=== PATIENT | male | born 1960 | race Caucasian/White ===

== ENCOUNTER 2019-01-22 23:30 | Emergency (ER) | payer OTHER ==
[2019-01-23] MEDS ORDERED: Cefepime 2 GM VIAL ONE (01:56)
[2019-01-23] MEDS ORDERED: diphenhydrAMINE 50 MG/ML VIAL ONE ×4 (02:23→03:04)
[2019-01-23] MEDS ORDERED: Iopamidol 370 76% 100 ML VIAL ONE (11:36)
--- NOTE | 2019-01-23 11:39 | ULT ---
PRELIMINARY REPORT/[facility]/EMERGENCY AFTER HOURS PROCEDURE CLINICAL HISTORY: Lt knee pain/edema, bruising from lt knee to lower calf x 4 days TECHNIQUE: Real-time ultrasound scan of the veins of the left lower extremity with color Doppler flow, spectral waveform analysis and compression. COMPARISON: None provided. FINDINGS: DEEP VEINS: The common femoral, femoral, and popliteal veins are echolucent and compressible. These vessels demonstrate respiratory variation and augmentation. There is normal color Doppler flow throughout. The visualized calf veins are also patent. SUPERFICIAL VEINS: The visualized greater saphenous vein is patent. SOFT TISSUES: No popliteal fossa cyst. Soft tissue edema is noted in the region of clinical concern . IMPRESSION: No deep venous thrombosis in the left lower extremity. ELECTRONICALLY SIGNED BY: Asad Shah MD Jan 23, 2019 12:35:11 AM AIRCRAFT INSTRUMENT TESTER This report is intended for review by the ordering physician only, in accordance of law. If you recei ve this report in error, please call [facility] at [phone]. FINAL REPORT: I agree with the preliminary report provided. No evidence of DVT in the left lower extremity. Transcribed Date/Time: 01/23/2019 2:01 PM
--- NOTE | 2019-01-23 11:39 | CT ---
PRELIMINARY REPORT/[facility]/EMERGENCY AFTER HOURS PROCEDURE EXAM: CTA Abdomen and Pelvis With Runoff to the Lower Extremities with Intravenous Contrast. CLINICAL HISTORY: ER 7... M58 presents to the ED via EMS txfer from another facility for elevated D-Dimer. Pt reports dereck damon believes he has a blood clot in his left leg and noticed swelling this past Monday. After having his leg raised, pt reports his swelling decreased but states his leg then "turned black". Pt s tates he is on ASA and Plavix. TECHNIQUE: Axial CTA images of the abdomen, pelvis and lower extremities with intravenous contrast. Three-dimens ional MIP/volume rendered formations were performed. CONTRAST: With; Isovue 370, 95ml COMPARISON: None provided. FINDINGS: VASCULATURE: Atherosclerosis. No aneurysm, dissection, or significant stenosis. 3 vessel flow to the feet bilaterally. Lower thorax: No basilar airspace consolidation. ABDOMEN: Liver: Steatosis. No mass. Gallbladder and bile ducts: No calcified stone. No ductal dilation. Pancreas: Unremarkable. No ductal dilation. Spleen: Unremarkable. Adrenals: No mass. Kidneys and ureters: The kidneys enhance symmetrically. No hydronephrosis. No solid mass. Bilateral renal cortical cysts. Stomach and bowel: No obstruction. No bowel wall thickening. No CT evidence of acute diverticulitis. Abdominal wall and soft tissues: Unremarkable. Appendix: The appendix is within normal limits. PELVIS: Bladder: Unremarkable. Reproductive: Unremarkable as visualized. Peritoneum: No free fluid. No free air. Lymph nodes: No lymphadenopathy. Bones: No acute osseous abnormality. LOWER EXTREMITIES: Soft tissues: Left lower extremity mild soft tissue edema. Lymph nodes: No lymphadenopathy. Bones: No acute osseous abnormality. Moderate left knee hemarthrosis. Remote left ACL repair surgery. Mild right hip osteoarthritis. Degenerative disc disease with foraminal narrowing and spinal stenosis at the lower lumbar levels. IMPRESSION: No occlusion or hemodynamically significant stenosis of the arterial system of the abdomen, pelvis, o r bilateral lower extremities. No AAA. No aortic dissection. ELECTRONICALLY SIGNED BY: Archie Allan MD Jan 23, 2019 2:35:38 AM ASSISTANT PROGRAM DIRECTOR FINAL REPORT: CT ARTERIOGRAM ABDOMEN AND PELVIS WITH IV CONTRAST AND 3D IMAGING CT ARTERIOGRAM RUNOFF BILATERAL LOWER EXTREMITIES WITH IV CONTRAST AND 3D IMAGING: DATE: 01/23/2019. PERFORMED ON AN EMERGENCY BASIS: 0137 hours. HISTORY: Vascular disease. Leg pain. Claudication. FINDINGS: Agree with the preliminary report by Dr. Allan from [facility]. Mild atherosclerosis. No signi ficant stenosis evident. Three-vessel runoff to each lower leg. Small hiatal hernia. Renal cysts. Degenerative changes throughout the lumbar spine. Fibrotic changes at the lung bases apparent. Transcribed Date/Time: 01/23/2019 2:08 PM
== END 2019-01-23 03:48 | disposition short-term general hospital (02) ==
LOC: ERS 23:30 → EEVIPCON 23:30 → ERS 01-23 03:48
DX: L03.116 Cellulitis of left lower limb (principal); I10 Essential (primary) hypertension; J44.9 Chronic obstructive pulmonary disease, unspecified; F25.9 Schizoaffective disorder, unspecified; Z79.82 Long term (current) use of aspirin; Z79.899 Other long term (current) drug therapy
CPT/HCPCS: 75635; 96365; 96367; 96375; J0692; J1200; J3370; Q9967

== ENCOUNTER 2019-07-29 01:12 | Inpatient (IN) | payer OTHER ==
[2019-07-29 02:18] LABS: #Lymphocytes 1.1 thou/uL (1.20-3.40); #Monocytes 0.9 thou/uL (0.11-0.59); #Neutrophils 9.5 thou/uL (1.40-6.50); %Basophils 0.2 % (0.0-1.0); %Eosinophils 0.2 % (0.0-10.0); %Lymphocytes 9.6 % (21.0-51.0); %Monocytes 7.6 % (0.0-10.0); %Neutrophils 82.5 % (42.0-75.0); Hemoglobin 15.4 g/dL (14.0-18.0); Mean Corpuscular HGB CONC 34.2 g/dL (32.0-36.0); Mean Corpuscular Hemoglobin 32.1 pg (27.0-31.0); Mean Corpuscular Volume 93.9 fL (78.0-98.0); Mean Platelet Volume 8.8 fL (7.4-10.4); Platelet Count 195 thou/uL (130-400); RBC Distribution Width 12.6 % (11.5-14.5); White Blood Cell (WBC) Count 11.6 thou/uL (4.8-10.8)
[2019-07-29 02:25] LABS: CO2 Tension 27.1 mmHg (35.0-45.0); O2 Tension (PaO2), arterial 46.1 mmHg (80.0-100.0); pH, Arterial 7.52 (7.35-7.45)
[2019-07-29 02:26] LABS: Actual Bicarbonate (HCO3a) 21.4 mEq/L (22-28); Base Excess (BEa) 0.1 mEq/L (-2.0 to +3.0); Carboxyhemoglobin (COHb) 1.2 gm% (0.0-3.0); Hemoglobin (Hb) 15.8 g/dL (14.0-18.0)
[2019-07-29 02:27] LABS: Analyzer IN Cardio ER; Calcium, Ionized (arterial) 1.01 mmol/L (1.12-1.30); Potassium - ABG Lab 3.31 mmol/L (3.70-5.30); Puncture Site RRA
[2019-07-29 02:28] LABS: ALV-art Gradient 429.625 (0-20)
[2019-07-29 02:40] LABS: ALT (SGPT) 29 U/L (8-55); AST (SGOT) 47 U/L (5-34); Albumin 3.5 g/dL (3.5-5.0); Alkaline Phosphatase 38 U/L (40-110); Anion Gap 18 mmol/L (10-20); BUN (Urea Nitrogen) 35 mg/dL (8.4-25.7); Bilirubin, Total 1.2 mg/dL (0.2-1.2); Calc. Creatinine Clearance 0 mL/min (70-130); Calcium 7.7 mg/dL (7.8-10.44); Carbon Dioxide 23 mmol/L (22-29); Chloride 95 mmol/L (98-107); Estimated GFR-MDRD 59; Globulin 3.4 g/dL (2.4-3.5); Glucose 113 mg/dL (70-105); Potassium 3.3 mmol/L (3.5-5.1); Protein, Total 6.9 g/dL (6.0-8.3); Sodium 133 mmol/L (136-145)
[2019-07-29] MEDS ORDERED: Aspirin 300 MG Suppository ONE (02:57)
[2019-07-29] MEDS ORDERED: Enoxaparin Sodium 80 MG/0.8 ML SYRINGE ONE (03:47)
[2019-07-29] MEDS ORDERED: Nitroglycerin 0.4 MG TAB (25 Tab Bottle) SL PRN (03:54)
[2019-07-29] MEDS ORDERED: Acetaminophen 325 MG TAB PO PRN (04:04)
--- NOTE | 2019-07-29 04:22 | PDOC.EVN ---
Event Note - Event Note Event Note: H&P dictated [id number]
[2019-07-29 05:18] LABS: Lactic Acid 2.4 mmol/L (0.5-2.2)
--- NOTE | 2019-07-29 05:22 | HP ---
CHIEF COMPLAINT: Shortness of breath. HISTORY OF PRESENT ILLNESS: Mr. Morales is a 59-year-old male who presents to the emergency room from [facility] with complaint of shortness of breath. Upon arrival to the emergency room, the patient was tachypneic and diaphoretic and in respiratory distress. Chills just started yesterday. The patient has also been having fever. The patient has a history of pulmonary bulla, rheumatoid arthritis, COPD, osteoarthritis, myocardial infarction x2. Initially, the patient was placed on high-flow nasal cannula, but the patient kept removing it. The oxygen saturation was in the low 80s. The patient then was placed on BiPAP, oxygen saturation currently is in the high 90s. CT of the chest was done, but without IV contrast because of poor IV access. It showed large bulla on right lung. The patient also was found to have elevated troponin of 0.63. The patient was placed on BiPAP with improvement in his respiratory status with decreased work of breathing. The patient had a troponin of 6.638. The patient was given aspirin and one dose of Lovenox. The patient is being admitted to [facility] for further management. PAST MEDICAL HISTORY: 1. Myocardial infarction x2. 2. COPD/pulmonary bulla. 3. Rheumatoid arthritis. 4. Osteoarthritis. 5. Schizoaffective disorder. SOCIAL HISTORY: Denies smoking, alcohol drinking, or drug abuse. FAMILY HISTORY: Reviewed and noncontributory. ALLERGIES: TO CODEINE AND PENICILLAMINE. CURRENT MEDICATIONS: Please see home medication reconciliation form for updated medications. REVIEW OF SYSTEMS: Review of 14 systems negative except what is mentioned in History of Present Illness. PHYSICAL EXAMINATION: GENERAL: The patient is awake, alert, in moderate respiratory distress, on BiPAP. HEAD AND NECK: Normocephalic, atraumatic. Neck is supple. CHEST: Decreased air entry, right lung. HEART: S1, S2. Regular. ABDOMEN: Soft, nontender. Bowel sounds present. NEUROLOGIC: Awake, alert, moving extremities. PSYCH: Unable to assess. EXTREMITIES: No clubbing or cyanosis. LABORATORY DATA: Sodium 133, potassium 3.3, glucose 113, BUN is 35, creatinine 1.2. Troponin is 0.66. BNP is 164. Lactic acid is 2.2. WBC count is 11.6, hemoglobin 15.4, platelets 195. ABG done on nasal cannula, pH 7.52, pCO2 of 27, pO2 of 46. CT of the chest as mentioned above in History of Present Illness. ASSESSMENT: 1. Acute hypoxic respiratory failure. 2. Pneumonia? Suspected COVID-19, COVID swab done in the emergency room. 3. Elevated troponin/acute coronary syndrome cannot be ruled out. 4. Pulmonary embolism cannot be entirely ruled out. CT was done, unfortunately without contrast since his IV infiltrated. 5. History of myocardial infarction. 6. Bullous lung disease. 7. Rheumatoid arthritis. PLAN: 1. Admit to IMCU. 2. Oxygen to keep saturation more than 92%. 3. Septic workup done in the ED. 4. Continue empirically with IV antibiotics for ?pneumonia. 5. COVID swab done in the ED. 6. Isolation precautions. 7. The patient was given one dose of Lovenox 1 mg/kg, we will continue IV anticoagulation, the patient may need CTA of the chest after establishing an IV access if pulmonary embolism need to be ruled out. 8. Consult Cardiology for evaluation and further recommendations, history of myocardial infarction, the patient is having elevated troponin. 9. Consult Pulmonary in a.m. for evaluation and further recommendations. 10. Serial troponins. 11. Reconcile home medications. 12. DVT prophylaxis appropriate. 13. GI prophylaxis. 14. Expected length of stay, 2 midnights or more. Job ID: [id number] MTDD
[2019-07-29 05:32] VITALS: BMI 27.1
[2019-07-29 05:38] LABS: Critical Call Chem Troponin I RESULT DECREASING
[2019-07-29] MEDS: Azithromycin 500 MG in Sodium Chloride 0.9% 250 ML 250 ML IVPB SCH (05:45)
[2019-07-29] MEDS: cefTRIAXone\\ROCEPHIN 1 GM in Sodium Chloride 0.9% 100 ML IVPB SCH (06:16)
[2019-07-29 09:25] LABS: CKMB 6.6 ng/mL (0-6.6)
[2019-07-29] MEDS: Enoxaparin Sodium 80 MG/0.8 ML SYRINGE SC SCH ×3 (09:31→21:56)
[2019-07-29] MEDS: Famotidine/PF 20 mg/2ml Vial SLOW IVP SCH ×2 (09:31→20:49)
[2019-07-29] MEDS: Aspirin 325 mg Enteric Coated Tablet PO SCH (09:31)
--- NOTE | 2019-07-29 09:37 | CON ---
DATE OF CONSULTATION: REASON FOR CONSULTATION: Elevated troponin. PRIMARY OPERATIONS ASSISTANT: None. HISTORY OF PRESENT ILLNESS: Mr. Morales is a 59-year-old gentleman, who recently presented with increased shortness of breath. He is from the [facility] with high incidence of COVID. COVID is currently pending. He denies chest pain, pressure, or other associated symptoms. He does have a previous history of underlying coronary artery disease. He states he had several stents placed in [place] in 2017. PAST MEDICAL HISTORY: 1. CAD, status post TX. 2. Status post stent. 3. COPD. 4. Rheumatoid arthritis. 5. Schizoaffective disorder. SOCIAL HISTORY: No current tobacco or alcohol use. He is currently incarcerated. FAMILY HISTORY: Noncontributory. ALLERGIES: CODEINE. REVIEW OF SYSTEMS: A 10-point review of systems is reviewed as above, otherwise negative. PHYSICAL EXAMINATION: GENERAL: He does appear older than stated age. VITAL SIGNS: Blood pressure 124/79, pulse 83, respirations 20. NEUROLOGIC: The patient is alert and oriented x3 with no focal neurologic deficits. HEENT: Sclerae without icterus. Mouth has moist mucous membranes with normal pallor. NECK: No JVD. Carotid upstroke brisk. No bruits bilaterally. LUNGS: Clear to auscultation with unlabored respirations. BACK: No scoliosis or kyphosis. CARDIAC: Regular rate and rhythm with normal S1 and S2. No S3 or S4 noted. No significant rubs, murmurs, thrills, or gallops noted throughout the precordium. PMI is not displaced. There is no parasternal heave. ABDOMEN: Soft, nontender, nondistended. No peritoneal signs present. No hepatosplenomegaly. No abnormal striae. EXTREMITIES: 2+ femoral and 2+ dorsalis pedis pulses. No cyanosis, clubbing, or edema. SKIN: No gross abnormalities. PERTINENT LABORATORY DATA: Creatinine 1.26. Peak troponin 0.638. Chest x-ray pending. IMPRESSION: 1. Elevated troponin. 2. ? COVID pneumonia. 3. Coronary artery disease. 4. Status post stent. 5. Previous myocardial infarction. RECOMMENDATIONS: At this point, we would recommend continued conservative therapy. He is not on pressor agents. His elevated troponin is secondary to type 2 TX from likely infection. He has had fever up to 101. At this point, we will continue conservative therapy. He is currently on BiPAP with no chest pain/pressure noted. We would recommend continued close observation. Continue Zithromax, in addition to Rocephin. We would continue Lovenox subcu q.12 x24 hours only, then decrease to DVT prophylaxis. I did spend 40 minutes of critical care time at Mr. Morales's bedside, both reviewing his case, visiting with the patient and reviewing records. Job ID: [id number]
--- NOTE | 2019-07-29 11:02 | CT ---
PRELIMINARY REPORT/[facility]/EMERGENCY AFTER HOURS PROCEDURE EXAM: CT Chest Without Intravenous Contrast. CLINICAL HISTORY: HX OF COPD FEELING SOB SINCE YESTERDAY TECHNIQUE: Axial computed tomography images of the chest without intravenous contrast. COMPARISON: CT - CTA ANGIO AORT BILAT RNMIKE W - 01/23/2019 01:33 AM CERTIFIED MEDICAL TECHNICIAN FINDINGS: LUNGS: 16.9 x 10.3 x 15.5 cm bulla involving the majority of the right upper lobe. Mild compression a nd inferior displacement of the right hilum which may be due to this large bullae. Additional small b lebs in the right medial lung. Reticular thickening, bronchiectasis and increased lucency seen in the right lower lobe and left upper lobe which is compatible with chronic interstitial lung disease and emphysema. PLEURAL SPACES: No pleural effusion. No pneumothorax. HEART AND MEDIASTINUM: Coronary artery calcifications are present. The heart is normal in size. There is a trace pericardial effusion. LYMPH NODES: No lymphadenopathy. CHEST WALL AND UPPER ABDOMEN: The upper abdominal solid organs are unremarkable. The chest wall is un remarkable. BONES: No acute osseous abnormality. IMPRESSION: Chronic interstitial lung disease with a 16.9 cm bulla involving the majority of the righ t upper lobe and causing mild inferior displacement of the right hilum and adjacent lung parenchyma. No focal pulmonary consolidation. ELECTRONICALLY SIGNED BY: Tanika Stanley MD Jul 29, 2019 3:37:47 AM CDT FINAL REPORT CT CHEST WITHOUT CONTRAST: Severe chronic lung changes with emphysematous change and interstitial fibrosis. A large bulla compr omises most of the right chest as noted on the preliminary report. I am in agreement with the preliminary report. POS: AMBER
--- NOTE | 2019-07-29 11:57 | RAD ---
CHEST 1 VIEW: HISTORY: Shortness of breath. History of COPD. FINDINGS: There is a huge bulla in the region of the right mid and upper lung zone with some compressive atelec tasis and linear and interstitial parenchymal changes in the aerated right lung. There is also exten sive interstitial and reticulonodular and honeycombing in the left lung, evidence for chronic interst itial lung disease. Heart size is within normal limits. No defined confluent process. IMPRESSION: Evidence for extensive chronic interstitial lung disease bilaterally with a huge bulla involving most of the right mid and upper lung zone. No old studies. POS: RRE
[2019-07-29] MEDS ORDERED: Magnesium 2 GM/50 ML 2 GM in Premix Bag 1 BAG IVPB PRN (12:59)
[2019-07-29] MEDS ORDERED: Potassium Phosphate 15 MMOL in Sodium Chloride 0.9% 250 ML 250 ML IV PRN (12:59)
[2019-07-29] MEDS ORDERED: Magnesium Oxide 400 MG TAB PO PRN ×2 (12:59)
[2019-07-29] MEDS ORDERED: Potassium Phosphate 12 MMOL in Sodium Chloride 0.9% 250 ML 250 ML IV PRN (12:59)
[2019-07-29] MEDS ORDERED: Potassium Phosphate 9 MMOL in Sodium Chloride 0.9% 100 ML IVPB PRN (12:59)
[2019-07-29] MEDS ORDERED: Potassium Chloride 40 MEQ in Sodium Chloride 0.9% 250 ML 250 ML IVPB PRN (12:59)
[2019-07-29] MEDS ORDERED: PHOS-NAK 1 PKT PACK PO PRN ×2 (12:59)
[2019-07-29] MEDS ORDERED: Potassium Chloride 20 MEQ TAB PO PRN (12:59)
[2019-07-29] MEDS ORDERED: CCU ELECTROLYTE REPLACEMENT PROTOCOL FS PRN (12:59)
[2019-07-29] MEDS ORDERED: Potassium Chloride 40 MEQ in Premix Bag 1 BAG IVPB PRN (12:59)
[2019-07-29 14:11] LABS: SARS-CoV-2 MS2 Positive; SARS-CoV-2 N Gene Positive; SARS-CoV-2 S Gene Positive; SARS-CoV-2 orf1ab Positive
[2019-07-29] MEDS ORDERED: methylPREDNISolone Sod Succ/PF 125 MG/2 ML VIAL IVP SCH (14:30)
[2019-07-29] MEDS: Dextrose 5 %-0.45 % NaCl 1,000 ML IV SCH (15:00)
--- NOTE | 2019-07-30 03:06 | CON ---
DATE OF CONSULTATION: HISTORY OF PRESENT ILLNESS: Mr. Morales is a 59-year-old [facility] inmate who comes from the unit with large population of COVID 19 positive individuals. He presented with complaints of shortness of breath and hypoxia. He is on BiPAP when I saw him. He said he was feeling better. PAST MEDICAL HISTORY: 1. Remarkable for very large bullous airspace intake of his entire right upper lobe. 2. History of rheumatoid arthritis. 3. History of COPD. 4. History of degenerative arthritis. 5. History of coronary artery disease. 6. History of schizoaffective disorder. 7. He is not currently smoking. 8. He is in the [facility], so he is not drinking. FAMILY HISTORY: Negative for lung disease in early age. ALLERGIES: TO PENICILLIN AND CODEINE. MEDICATIONS: Have been reviewed. REVIEW OF SYSTEMS: Otherwise negative. He says he feels better, I actually wakened him from sleep with his BiPAP on. PHYSICAL EXAMINATION: VITAL SIGNS: Heart rate is 82, blood pressure is 117/77, respiratory rate is 26 , oximetry is 95. HEENT: Pupils are equal. Sclerae are anicteric. NECK: Supple. LUNGS: Clear. HEART: Regular rhythm. ABDOMEN: Soft. EXTREMITIES: Without clubbing, cyanosis, or edema. NEUROLOGIC: Nonfocal. LABORATORY DATA: White count 11.6, hemoglobin 15.4, platelets 195. Sodium 133, potassium 3.3, chloride 95, bicarb 23, BUN 35, creatinine 1.26. IMPRESSION: Chest CT reviewed showing bibasilar patchy early alveolar infiltrates. This was not present on an old abdominal vascular CT where the lung windows could be visualized. His bullous airspace was there. His COVID serology is positive. IMPRESSION: 1. COVID-19 pneumonia. 2. Chronic obstructive pulmonary disease with bullous disease. 3. History of rheumatoid arthritis. Critical care time 30 min. [facility] ID[facility] [id number] [facility]
[2019-07-30 03:38] LABS: #Lymphocytes 0.7 thou/uL (1.20-3.40); #Monocytes 0.4 thou/uL (0.11-0.59); %Eosinophils 0.2 % (0.0-10.0); %Lymphocytes 7.6 % (21.0-51.0); %Monocytes 3.9 % (0.0-10.0); %Neutrophils 88.3 % (42.0-75.0); Hemoglobin 14.4 g/dL (14.0-18.0); Mean Corpuscular HGB CONC 34.4 g/dL (32.0-36.0); Platelet Count 216 thou/uL (130-400); RBC Distribution Width 12.9 % (11.5-14.5); Red Blood Cell (RBC) Count 4.38 mill/uL (4.70-6.10); White Blood Cell (WBC) Count 9.1 thou/uL (4.8-10.8)
[2019-07-30 03:58] LABS: Anion Gap 15 mmol/L (10-20); BUN (Urea Nitrogen) 26 mg/dL (8.4-25.7); Calc. Creatinine Clearance 115 mL/min (70-130); Calcium 7.7 mg/dL (7.8-10.44); Carbon Dioxide 23 mmol/L (22-29); Cardiac Risk 8.2 (Less than 4.5); Chloride 102 mmol/L (98-107); Cholesterol 115 mg/dl (< 200 Desired); Estimated GFR-MDRD Greater than 90; Glucose 204 mg/dL (70-105); HDL Cholesterol 14 mg/dL (>60 Neg Risk); LDL Cholesterol, Calculated 74 mg/dL; Potassium 3.8 mmol/L (3.5-5.1); Sodium 136 mmol/L (136-145); Triglycerides 135 mg/dL (Less than 150)
[2019-07-30] MEDS: Azithromycin 500 MG in Sodium Chloride 0.9% 250 ML 250 ML IVPB SCH (04:48)
[2019-07-30] MEDS: cefTRIAXone\\ROCEPHIN 1 GM in Sodium Chloride 0.9% 100 ML IVPB SCH (06:05)
[2019-07-30] MEDS: methylPREDNISolone Sod Succ/PF 125 MG/2 ML VIAL IVP SCH (08:22)
[2019-07-30] MEDS: Enoxaparin Sodium 80 MG/0.8 ML SYRINGE SC SCH ×3 (08:22→20:05)
[2019-07-30] MEDS: Famotidine/PF 20 mg/2ml Vial SLOW IVP SCH ×2 (08:22→20:05)
[2019-07-30] MEDS: Aspirin 325 mg Enteric Coated Tablet PO SCH (08:22)
[2019-07-30] MEDS: Dextrose 5 %-0.45 % NaCl 1,000 ML IV SCH (12:51)
--- NOTE | 2019-07-30 13:24 | PRG ---
DATE OF SERVICE: 07/30/2019 SUBJECTIVE: Mr. Morales remains on high-flow oxygen. OBJECTIVE: VITAL SIGNS: Heart rate is in 80s, blood pressure 115/85, oximetry is in the low 90s. Otherwise, he is unchanged. He is in no distress. IMPRESSION: 1. Respiratory failure associated with COVID-19. 2. He is no longer requiring BiPAP. 3. We will continue with high-flow oxygen. He has received convalescent plasma. We will continue supportive care. Critical care time 30 min. Job ID: [id number] MTDD
[2019-07-30] MEDS: Carvedilol 6.25 MG TAB PO SCH (20:04)
[2019-07-30] MEDS: diphenhydrAMINE 50 MG CAP PO SCH (20:04)
[2019-07-30] MEDS: Terazosin HCl 5 MG CAP PO SCH (20:04)
[2019-07-30] MEDS: Atorvastatin Calcium 40 MG TAB PO SCH (20:26)
[2019-07-31] MEDS: Mometasone 100 MCG/PUFF (1 INHALER) INH SCH ×3 (01:11→20:30)
[2019-07-31] MEDS: Enoxaparin Sodium 80 MG/0.8 ML SYRINGE SC SCH ×2 (08:33→20:31)
[2019-07-31] MEDS: Azithromycin 500 MG in Sodium Chloride 0.9% 250 ML 250 ML IVPB SCH (08:33)
[2019-07-31] MEDS: cefTRIAXone\\ROCEPHIN 1 GM in Sodium Chloride 0.9% 100 ML IVPB SCH (08:33)
[2019-07-31] MEDS: methylPREDNISolone Sod Succ/PF 125 MG/2 ML VIAL IVP SCH (08:34)
[2019-07-31] MEDS: Aspirin 81 mg Enteric Coated Tablet PO SCH (08:35)
[2019-07-31] MEDS: Famotidine 20 MG TAB PO SCH ×2 (08:35→20:31)
[2019-07-31] MEDS: DULoxetine 30 MG CAP PO SCH (08:35)
[2019-07-31] MEDS: Clopidogrel Bisulfate 75 MG TAB PO SCH (08:35)
[2019-07-31] MEDS: Amlodipine 5 MG TAB PO SCH (08:35)
[2019-07-31] MEDS: diphenhydrAMINE 50 MG CAP PO SCH ×2 (08:35→20:31)
[2019-07-31] MEDS: Carvedilol 6.25 MG TAB PO SCH ×2 (08:35→20:31)
[2019-07-31] MEDS: Dextrose 5 %-0.45 % NaCl 1,000 ML IV SCH (08:48)
[2019-07-31 10:58] LABS: Albumin 3.1 g/dL (3.5-5.0)
[2019-07-31 10:59] LABS: Chloride 106 mmol/L (98-107); Potassium 3.4 mmol/L (3.5-5.1); Sodium 138 mmol/L (136-145)
[2019-07-31 11:00] LABS: Calcium 7.7 mg/dL (7.8-10.44); Glucose 173 mg/dL (70-105)
[2019-07-31 11:01] LABS: Globulin 2.7 g/dL (2.4-3.5); Protein, Total 5.8 g/dL (6.0-8.3)
[2019-07-31 11:02] LABS: Anion Gap 12 mmol/L (10-20); Bilirubin, Total 0.8 mg/dL (0.2-1.2); Carbon Dioxide 23 mmol/L (22-29)
[2019-07-31 11:03] LABS: Alkaline Phosphatase 43 U/L (40-110)
[2019-07-31 11:04] LABS: Calc. Creatinine Clearance 122 mL/min (70-130); Estimated GFR-MDRD Greater than 90
[2019-07-31 11:05] LABS: AST (SGOT) 38 U/L (5-34); BUN (Urea Nitrogen) 18 mg/dL (8.4-25.7)
[2019-07-31 11:06] LABS: ALT (SGPT) 35 U/L (8-55)
--- NOTE | 2019-07-31 14:46 | PRG ---
DATE OF SERVICE: 07/31/2019 Tony Morales remains stable on high-flow oxygen. Heart rate is in 80s, blood pressure 106/82, respiratory rates in the 20s, and oximetry is in the 90s. He is out of the intensive care unit now. He is stable for transfer to [facility] if a bed becomes available. Job ID: [id number]
--- NOTE | 2019-07-31 15:42 | PDOC.EVN ---
Event Note - Event Note Event Note: Reviewed current clinical data and recent labs. Pt continues on high-flow O2 @ 50L/min with FIO2 90%. Transferred out of CCU to IMCU and overall remaining stable. Limiting contact by multiple providers to COVID-19. Continue Zithromax/ Rocephin/Solumedrol/Duonebs/Lovenox.
[2019-07-31] MEDS: Atorvastatin Calcium 40 MG TAB PO SCH (20:31)
[2019-07-31] MEDS: Terazosin HCl 5 MG CAP PO SCH (20:31)
[2019-08-01 04:12] LABS: ALT (SGPT) 34 U/L (8-55); AST (SGOT) 33 U/L (5-34); Albumin 2.8 g/dL (3.5-5.0); Alkaline Phosphatase 47 U/L (40-110); Anion Gap 9 mmol/L (10-20); BUN (Urea Nitrogen) 18 mg/dL (8.4-25.7); Bilirubin, Total 0.6 mg/dL (0.2-1.2); Calc. Creatinine Clearance 118 mL/min (70-130); Calcium 7.4 mg/dL (7.8-10.44); Carbon Dioxide 25 mmol/L (22-29); Chloride 108 mmol/L (98-107); Estimated GFR-MDRD Greater than 90; Globulin 2.5 g/dL (2.4-3.5); Glucose 182 mg/dL (70-105); Potassium 3.4 mmol/L (3.5-5.1); Protein, Total 5.3 g/dL (6.0-8.3); Sodium 139 mmol/L (136-145)
[2019-08-01] MEDS: Dextrose 5 %-0.45 % NaCl 1,000 ML IV SCH (04:51)
[2019-08-01] MEDS: Mometasone 100 MCG/PUFF (1 INHALER) INH SCH ×2 (04:52→20:25)
[2019-08-01] MEDS: DULoxetine 30 MG CAP PO SCH (09:05)
[2019-08-01] MEDS: Aspirin 81 mg Enteric Coated Tablet PO SCH (09:05)
[2019-08-01] MEDS: Enoxaparin Sodium 80 MG/0.8 ML SYRINGE SC SCH ×2 (09:05→20:02)
[2019-08-01] MEDS: Clopidogrel Bisulfate 75 MG TAB PO SCH (09:05)
[2019-08-01] MEDS: Famotidine 20 MG TAB PO SCH ×2 (09:05→20:02)
[2019-08-01] MEDS: diphenhydrAMINE 50 MG CAP PO SCH ×2 (09:05→20:02)
[2019-08-01] MEDS: Amlodipine 5 MG TAB PO SCH (09:06)
[2019-08-01] MEDS: methylPREDNISolone Sod Succ/PF 125 MG/2 ML VIAL IVP SCH (09:06)
[2019-08-01] MEDS: cefTRIAXone\\ROCEPHIN 1 GM in Sodium Chloride 0.9% 100 ML IVPB SCH (09:06)
[2019-08-01] MEDS: Azithromycin 500 MG in Sodium Chloride 0.9% 250 ML 250 ML IVPB SCH (09:06)
[2019-08-01] MEDS: Carvedilol 6.25 MG TAB PO SCH ×2 (09:06→20:01)
--- NOTE | 2019-08-01 09:55 | PDOC.HOSPP ---
- Subjective Encounter Date: 08/01/19 Encounter Time: 09:25 Subjective: f/u for COVID-19 PNA on Rocephin/Zithromax - Objective Vital Signs & Weight: Vital Signs (12 hours) BP Pulse Ox 08/01/19 09:06 126/80 08/01/19 08:00 88 L 08/01/19 01:00 92 L 08/01/19 00:49 94 L Weight Admit Weight 178 lb Weight 178 lb 9.191 oz Most Recent Monitor Data Heart Rate from ECG 74 NIBP 138/83 NIBP BP-Mean 101 Respiration from ECG 28 SpO2 89 I&O: 07/31/19 08/01/19 08/02/19 06:59 06:59 06:59 Intake Total 1919 1421 Output Total 825 1500 Balance 1093 -79 Result Diagrams: 07/30/19 03:00 08/01/19 03:20 EKG Reviewed by me: Yes (Tele - SR) Hospitalist ROS - Medication Medications: Active Medications Generic Name Dose Route Start Last Admin Trade Name Jodi PRN Reason Stop Dose Admin Amlodipine Besylate 5 mg 07/31/19 09:00 08/01/19 09:06 Norvasc PO 5 mg DAILY ELISABET Administration Aspirin 81 mg 07/31/19 09:00 08/01/19 09:05 Ecotrin PO 81 mg DAILY ELISABET Administration Atorvastatin Calcium 40 mg 07/30/19 21:00 07/31/19 20:31 Lipitor PO 40 mg HS ELISABET Administration Carvedilol 6.25 mg 07/30/19 21:00 08/01/19 09:06 Coreg PO 6.25 mg BID ELISABET Administration Clopidogrel Bisulfate 75 mg 07/31/19 09:00 08/01/19 09:05 Plavix PO 75 mg DAILY ELISABET Administration Diphenhydramine HCl 50 mg 07/30/19 21:00 08/01/19 09:05 Benadryl PO 50 mg BID ELISABET Administration Duloxetine HCl 30 mg 07/31/19 09:00 08/01/19 09:05 Cymbalta PO 30 mg DAILY ELISABET Administration Enoxaparin Sodium 80 mg 07/29/19 09:00 08/01/19 09:05 Lovenox SC 80 mg 0900,2100 ELISABET Administration Famotidine 20 mg 07/31/19 09:00 08/01/19 09:05 Pepcid PO 20 mg BID ELISABET Administration Potassium Chloride 40 meq/ 100 mls @ 50 mls/hr 07/29/19 12:59 07/29/19 14:24 Device IVPB 100 mls ASDIR PRN Administration FOR SERUM K+ 2.5 - 3.5 Dextrose/Sodium Chloride 1,000 mls @ 50 mls/hr 07/29/19 15:30 08/01/19 04:51 D5 1/2 Ns IV 1,000 mls .Q20H ELISABET Administration Azithromycin 500 mg/ Sodium 250 mls @ 250 mls/hr 07/31/19 09:00 08/01/19 09: 06 Chloride IVPB 250 mls 0900 ELISABET Administration Ceftriaxone Sodium 1 gm/ 100 mls @ 200 mls/hr 07/31/19 09:00 08/01/19 09:06 Sodium Chloride IVPB 100 mls 0900 ELISABET Administration Methylprednisolone Sodium Succinate 80 mg 07/30/19 09:00 08/01/19 09:06 Solu-Medrol IVP 80 mg DAILY ELISABET Administration Mometasone Furoate 100 mcg 07/30/19 18:30 08/01/19 04:52 Asmanex Hfa 100 Mcg INH 1 puff BID-RT ELISABET Administration Terazosin HCl 5 mg 07/30/19 21:00 07/31/19 20:31 Hytrin PO 5 mg QPM ELISABET Administration - Exam General Appearance: awake alert General - other findings: tachypneic, responsive Eye: PERRL, anicteric sclera ENT: normocephalic atraumatic, no oropharyngeal lesions ENT - other findings: high-flow NC in place Neck: supple, symmetric, no JVD, no thyromegaly, no lymphadenopathy Heart: RRR, no murmur, no gallops, no rubs, normal peripheral pulses Heart - other findings: S1, S2 Respiratory - other findings: diminished bilat R>L, wheezes bilat Gastrointestinal: soft, non-tender, non-distended, normal bowel sounds, no palpable masses Extremities: no cyanosis, no clubbing, no edema Skin: normal turgor, no lesions Neurological: cranial nerve grossly intact, no new deficit Musculoskeletal: normal tone, normal strength Psychiatric: normal affect, A&O x 3 Hosp A/P (1) Pneumonia due to COVID-19 virus Code(s): U07.1 - COVID-19; J12.89 - OTHER VIRAL PNEUMONIA Status: Acute Plan: Continue Rocephin/Zithromax, s/p convalescent plasma, O2 support, resp isolation (2) Acute and chronic respiratory failure with hypoxia Code(s): J96.21 - ACUTE AND CHRONIC RESPIRATORY FAILURE WITH HYPOXIA Status: Acute Plan: Continue high-flow O2 via NC currently 50L/min (3) COPD (chronic obstructive pulmonary disease) Status: Chronic Plan: Add Albuterol HFA 2 puffs q4h prn, Solumedrol/Dulera (4) Hypokalemia Code(s): E87.6 - HYPOKALEMIA Status: Acute Plan: KCL supplementation, serial K+ monitoring (5) Type 2 myocardial infarction Code(s): I21.A1 - MYOCARDIAL INFARCTION TYPE 2 Status: Acute Plan: conservative mgmt, medical mgmt, no acute intervention - Plan continue antibiotics, respiratory therapy, DVT proph w/SCDs Continue pulmonary supportive mgmt Add Albuterol MDI 2 puffs q4h prn Continue Zithromax/Rocephin Continue Solumedrol KCL 40meq BID AM lab: BMP
[2019-08-01] MEDS ORDERED: Potassium Chloride 20 MEQ TAB PO SCH (10:15)
[2019-08-01] MEDS: Albuterol 200 PUFF (6.7GM INHALER) INH PRN ×2 (11:06→20:02)
--- NOTE | 2019-08-01 11:39 | PQF ---
CLINICAL DOCUMENTATION IMPROVEMENT CLARIFICATION FORM: ICD-10 Updated PLEASE DO AN ADDENDUM TO THE PROGRESS NOTE WITH ANY DOCUMENTATION UPDATES OR ADDITIONS AND CARRY THROUGH TO DC SUMMARY. THANK YOU. DATE: 08/01/2019 ATTN: Dr. Rodriguez Please exercise your independent, professional judgment in responding to the clarification form. Clinical indicators are provided on the bottom of this form for your review Please check appropriate box(es): [ ] Sepsis present on admission [ ] Sepsis NOT present on admission [ ] Unable to determine Due to: [ ] Severe sepsis present on admission [ ] Severe Sepsis NOT present on admission [ ] Unable to determine with acute organ dysfunction of: [ x ] Localized infection without sepsis [ ] Other diagnosis [ ] Unable to determine For continuity of documentation, please document condition throughout progress notes and discharge summary. Thank You. CLINICAL INDICATORS - SIGNS / SYMPTOMS / LABS / RESULTS AND LOCATION IN MR ER Record 07/28: VS BP 125/82, Pulse 102, Resp. 36, O2 sat 82 on Non Rebreather. Temp. 101.2 H&P 07/28: Lab: Lactic acid 2.2 WBC 11.6 ABG pO2 46 Assessment: Acute hypoxic respiratory failure 07/31 (Michael) Pneumonia due to COVID-19 virus. Acute and chronic respiratory failure with hypoxia Type 2 myocardial infarction RISKS: H&P 07/28: PMH COPD/pulmonary bulla. Rheumatoid arthritis 07/29 (Jazmin) Respiratory failure associated with COVID-19. TREATMENT: H&P 07/28: Admit to IMCU Oxygen to keep saturation more than 92% Order 07/28, 07/29: Rocephin 1 gm IV Order 07/28, 07/29: Azithromycin 500mg IV Thank you, Becky (This form is maintained as a part of the permanent medical record) 2014 [employer]. All Rights Reserved Becky Holloway RN, BSN [email or web address] [facility]
[2019-08-01] MEDS: Potassium Chloride 20 MEQ TAB PO SCH (17:45)
[2019-08-01] MEDS: Atorvastatin Calcium 40 MG TAB PO SCH (20:02)
[2019-08-01] MEDS: Terazosin HCl 5 MG CAP PO SCH (20:02)
[2019-08-02] MEDS: Dextrose 5 %-0.45 % NaCl 1,000 ML IV SCH ×2 (01:53→22:39)
[2019-08-02 03:47] LABS: ALT (SGPT) 41 U/L (8-55); AST (SGOT) 32 U/L (5-34); Alkaline Phosphatase 52 U/L (40-110); Anion Gap 13 mmol/L (10-20); BUN (Urea Nitrogen) 15 mg/dL (8.4-25.7); Bilirubin, Total 0.6 mg/dL (0.2-1.2); Calc. Creatinine Clearance 115 mL/min (70-130); Calcium 7.6 mg/dL (7.8-10.44); Carbon Dioxide 20 mmol/L (22-29); Chloride 110 mmol/L (98-107); Estimated GFR-MDRD Greater than 90; Globulin 2.8 g/dL (2.4-3.5); Glucose 156 mg/dL (70-105); Potassium 3.9 mmol/L (3.5-5.1); Protein, Total 5.8 g/dL (6.0-8.3); Sodium 139 mmol/L (136-145)
[2019-08-02] MEDS: Mometasone 100 MCG/PUFF (1 INHALER) INH SCH ×2 (06:45→18:35)
[2019-08-02] MEDS: methylPREDNISolone Sod Succ/PF 125 MG/2 ML VIAL IVP SCH (08:43)
[2019-08-02] MEDS: Azithromycin 500 MG in Sodium Chloride 0.9% 250 ML 250 ML IVPB SCH (08:44)
[2019-08-02] MEDS: Enoxaparin Sodium 80 MG/0.8 ML SYRINGE SC SCH ×2 (08:44→20:52)
[2019-08-02] MEDS: cefTRIAXone\\ROCEPHIN 1 GM in Sodium Chloride 0.9% 100 ML IVPB SCH (08:45)
[2019-08-02] MEDS: DULoxetine 30 MG CAP PO SCH (08:45)
[2019-08-02] MEDS: Potassium Chloride 20 MEQ TAB PO SCH ×2 (08:45→17:36)
[2019-08-02] MEDS: diphenhydrAMINE 50 MG CAP PO SCH ×2 (08:45→20:52)
[2019-08-02] MEDS: Aspirin 81 mg Enteric Coated Tablet PO SCH (08:45)
[2019-08-02] MEDS: Famotidine 20 MG TAB PO SCH ×2 (08:46→20:52)
[2019-08-02] MEDS: Amlodipine 5 MG TAB PO SCH (08:46)
[2019-08-02] MEDS: Clopidogrel Bisulfate 75 MG TAB PO SCH (08:46)
[2019-08-02] MEDS: Carvedilol 6.25 MG TAB PO SCH ×2 (08:46→20:52)
--- NOTE | 2019-08-02 17:52 | PDOC.HOSPP ---
- Subjective Encounter Date: 08/02/19 Encounter Time: 17:30 Subjective: f/u for resp failure, COVID-19 PNA on Zithromax/Rocephin/Dulera/Albuterol/ Solumedrol on high-flow O2. Feels better overall. Appetite improving. - Objective Vital Signs & Weight: Vital Signs (12 hours) BP Pulse Ox 08/02/19 08:46 159/96 H 08/02/19 07:55 88 L Weight Admit Weight 178 lb 9.191 oz Weight 178 lb 9.191 oz Most Recent Monitor Data Heart Rate from ECG 74 NIBP 125/82 NIBP BP-Mean 96 Respiration from ECG 24 SpO2 92 I&O: 08/01/19 08/02/19 08/03/19 06:59 06:59 06:59 Intake Total 1421 1440 Output Total 1500 1200 Balance -79 240 Result Diagrams: 07/30/19 03:00 08/02/19 03:06 EKG Reviewed by me: Yes (Tele - SR) Hospitalist ROS - Medication Medications: Active Medications Generic Name Dose Route Start Last Admin Trade Name Freq PRN Reason Stop Dose Admin Albuterol Sulfate 2 puff 08/01/19 09:59 08/01/19 20:02 Proventil Hfa INH 2 puff Q4H PRN Administration Dyspnea/Wheezing/SOB Amlodipine Besylate 5 mg 07/31/19 09:00 08/02/19 08:46 Norvasc PO 5 mg DAILY ELISABET Administration Aspirin 81 mg 07/31/19 09:00 08/02/19 08:45 Ecotrin PO 81 mg DAILY ELISABET Administration Atorvastatin Calcium 40 mg 07/30/19 21:00 08/01/19 20:02 Lipitor PO 40 mg HS ELISABET Administration Carvedilol 6.25 mg 07/30/19 21:00 08/02/19 08:46 Coreg PO 6.25 mg BID ELISABET Administration Clopidogrel Bisulfate 75 mg 07/31/19 09:00 08/02/19 08:46 Plavix PO 75 mg DAILY ELISABET Administration Diphenhydramine HCl 50 mg 07/30/19 21:00 08/02/19 08:45 Benadryl PO 50 mg BID ELISABET Administration Duloxetine HCl 30 mg 07/31/19 09:00 08/02/19 08:45 Cymbalta PO 30 mg DAILY ELISABET Administration Enoxaparin Sodium 80 mg 07/29/19 09:00 08/02/19 08:44 Lovenox SC 80 mg 0900,2100 ELISABET Administration Famotidine 20 mg 07/31/19 09:00 08/02/19 08:46 Pepcid PO 20 mg BID ELISABET Administration Potassium Chloride 40 meq/ 100 mls @ 50 mls/hr 07/29/19 12:59 07/29/19 14:24 Device IVPB 100 mls ASDIR PRN Administration FOR SERUM K+ 2.5 - 3.5 Dextrose/Sodium Chloride 1,000 mls @ 50 mls/hr 07/29/19 15:30 08/02/19 01:53 D5 1/2 Ns IV 1,000 mls .Q20H ELISABET Administration Azithromycin 500 mg/ Sodium 250 mls @ 250 mls/hr 07/31/19 09:00 08/02/19 08: 44 Chloride IVPB 250 mls 0900 ELISABET Administration Ceftriaxone Sodium 1 gm/ 100 mls @ 200 mls/hr 08/02/19 10:00 08/02/19 08:45 Sodium Chloride IVPB 100 mls 1000 ELISABET Administration Methylprednisolone Sodium Succinate 80 mg 07/30/19 09:00 08/02/19 08:43 Solu-Medrol IVP 80 mg DAILY ELISABET Administration Mometasone Furoate 100 mcg 07/30/19 18:30 08/02/19 06:45 Asmanex Hfa 100 Mcg INH Not Given BID-RT ELISABET Potassium Chloride 40 meq 08/01/19 17:00 08/02/19 17:36 K-Dur PO 40 meq BID-WM ELISABET Administration Terazosin HCl 5 mg 07/30/19 21:00 08/01/19 20:02 Hytrin PO 5 mg QPM ELISABET Administration - Exam General Appearance: NAD, awake alert Eye: PERRL, anicteric sclera ENT: normocephalic atraumatic, no oropharyngeal lesions Neck: supple, symmetric, no JVD, no thyromegaly, no lymphadenopathy Heart: RRR, no murmur, no gallops, no rubs, normal peripheral pulses Respiratory - other findings: diminished bilat, occ exp wheeze Gastrointestinal: soft, non-tender, non-distended, normal bowel sounds, no palpable masses Extremities: no cyanosis, no clubbing, no edema Skin: normal turgor, no lesions Neurological: cranial nerve grossly intact, no new deficit Musculoskeletal: normal tone, normal strength, no muscle wasting Psychiatric: normal affect, A&O x 3 Hosp A/P (1) Pneumonia due to COVID-19 virus Code(s): U07.1 - COVID-19; J12.89 - OTHER VIRAL PNEUMONIA Status: Acute Plan: Continue pulm support with Zithromax/Rocephin/Solumedrol, s/p convalescent plasma (2) Acute and chronic respiratory failure with hypoxia Code(s): J96.21 - ACUTE AND CHRONIC RESPIRATORY FAILURE WITH HYPOXIA Status: Acute Plan: Continue high-flow O2, Albuterol/Dulera/Solumedrol (3) COPD (chronic obstructive pulmonary disease) Status: Chronic (4) Hypokalemia Code(s): E87.6 - HYPOKALEMIA Status: Acute (5) Type 2 myocardial infarction Code(s): I21.A1 - MYOCARDIAL INFARCTION TYPE 2 Status: Acute - Plan continue antibiotics, social work administrator, respiratory therapy, DVT proph w/SCDs Continue pulmonary supportive mgmt Add Albuterol MDI 2 puffs q4h prn Continue Zithromax/Rocephin Continue Solumedrol KCL 40meq daily AM lab: BMP
[2019-08-02] MEDS: Terazosin HCl 5 MG CAP PO SCH (20:52)
[2019-08-02] MEDS: Atorvastatin Calcium 40 MG TAB PO SCH (20:52)
[2019-08-03] MEDS: Mometasone 100 MCG/PUFF (1 INHALER) INH SCH ×2 (06:53→18:51)
[2019-08-03] MEDS: Clopidogrel Bisulfate 75 MG TAB PO SCH (08:51)
[2019-08-03] MEDS: Potassium Chloride 20 MEQ TAB PO SCH (08:51)
[2019-08-03] MEDS: Carvedilol 6.25 MG TAB PO SCH ×2 (08:51→20:45)
[2019-08-03] MEDS: Amlodipine 5 MG TAB PO SCH (08:51)
[2019-08-03] MEDS: Aspirin 81 mg Enteric Coated Tablet PO SCH (08:51)
[2019-08-03] MEDS: diphenhydrAMINE 50 MG CAP PO SCH ×2 (08:51→20:45)
[2019-08-03] MEDS: Azithromycin 500 MG in Sodium Chloride 0.9% 250 ML 250 ML IVPB SCH (08:52)
[2019-08-03] MEDS: cefTRIAXone\\ROCEPHIN 1 GM in Sodium Chloride 0.9% 100 ML IVPB SCH (08:53)
[2019-08-03] MEDS: Enoxaparin Sodium 80 MG/0.8 ML SYRINGE SC SCH ×2 (08:54→20:45)
[2019-08-03] MEDS: DULoxetine 30 MG CAP PO SCH (08:54)
[2019-08-03] MEDS: methylPREDNISolone Sod Succ/PF 125 MG/2 ML VIAL IVP SCH (08:55)
[2019-08-03] MEDS: Famotidine 20 MG TAB PO SCH ×2 (08:57→20:45)
[2019-08-03 10:14] LABS: ALT (SGPT) 48 U/L (8-55); AST (SGOT) 32 U/L (5-34); Alkaline Phosphatase 54 U/L (40-110); Anion Gap 13 mmol/L (10-20); BUN (Urea Nitrogen) 11 mg/dL (8.4-25.7); Bilirubin, Total 0.7 mg/dL (0.2-1.2); Calc. Creatinine Clearance 130 mL/min (70-130); Calcium 7.8 mg/dL (7.8-10.44); Carbon Dioxide 21 mmol/L (22-29); Chloride 110 mmol/L (98-107); Estimated GFR-MDRD Greater than 90; Globulin 2.7 g/dL (2.4-3.5); Glucose 101 mg/dL (70-105); Potassium 4.1 mmol/L (3.5-5.1); Protein, Total 5.7 g/dL (6.0-8.3); Sodium 140 mmol/L (136-145)
[2019-08-03 11:06] LABS: Actual Bicarbonate (HCO3a) 21.3 mEq/L (22-28); Base Excess (BEa) -1.1 mEq/L (-2.0 to +3.0); CO2 Tension 29.8 mmHg (35.0-45.0); Calcium, Ionized (arterial) 1.15 mmol/L (1.12-1.30); Carboxyhemoglobin (COHb) 0.9 gm% (0.0-3.0); Hemoglobin (Hb) 14.3 g/dL (14.0-18.0); Potassium - ABG Lab 4.09 mmol/L (3.70-5.30); pH, Arterial 7.47 (7.35-7.45)
[2019-08-03 11:09] LABS: O2 Tension (PaO2), arterial 49.1 mmHg (80.0-100.0)
--- NOTE | 2019-08-03 11:20 | RAD ---
Exam: Chest one view HISTORY:Hypoxia Comparison: 07/29/2019 FINDINGS: Cardiac silhouette: Normal Aorta: Atherosclerosis Pulmonary vessels: Normal Costophrenic angles: Clear LUNGS: Chronic fibrotic changes in the lung parenchyma. Stable large bulla in the right lung. Pneumothorax: None Osseous abnormalities: None IMPRESSION: No significant interval change.
[2019-08-03] MEDS: Dextrose 5 %-0.45 % NaCl 1,000 ML IV SCH (18:01)
--- NOTE | 2019-08-03 18:50 | PDOC.HOSPP ---
- Subjective Encounter Date: 08/03/19 Subjective: SOB with minimal activity. - Objective Vital Signs & Weight: Vital Signs (12 hours) BP Pulse Ox 08/03/19 08:51 159/96 H 08/03/19 08:10 88 L 08/03/19 08:00 90 L Weight Admit Weight 178 lb 9.191 oz Weight 178 lb 9.191 oz Most Recent Monitor Data Heart Rate from ECG 86 NIBP 132/83 NIBP BP-Mean 99 Respiration from ECG 26 SpO2 89 I&O: 08/02/19 08/03/19 08/04/19 06:59 06:59 06:59 Intake Total 1440 2715 Output Total 1200 2625 Balance 240 90 Result Diagrams: 07/30/19 03:00 08/03/19 09:38 Hospitalist ROS - Medication Medications: Active Medications Generic Name Dose Route Start Last Admin Trade Name Freq PRN Reason Stop Dose Admin Albuterol Sulfate 2 puff 08/01/19 09:59 08/01/19 20:02 Proventil Hfa INH 2 puff Q4H PRN Administration Dyspnea/Wheezing/SOB Amlodipine Besylate 5 mg 07/31/19 09:00 08/03/19 08:51 Norvasc PO 5 mg DAILY ELISABET Administration Aspirin 81 mg 07/31/19 09:00 08/03/19 08:51 Ecotrin PO 81 mg DAILY ELISABET Administration Atorvastatin Calcium 40 mg 07/30/19 21:00 08/02/19 20:52 Lipitor PO 40 mg HS ELISABET Administration Carvedilol 6.25 mg 07/30/19 21:00 08/03/19 08:51 Coreg PO 6.25 mg BID ELISABET Administration Clopidogrel Bisulfate 75 mg 07/31/19 09:00 08/03/19 08:51 Plavix PO 75 mg DAILY ELISABET Administration Diphenhydramine HCl 50 mg 07/30/19 21:00 08/03/19 08:51 Benadryl PO 50 mg BID ELISABET Administration Duloxetine HCl 30 mg 07/31/19 09:00 08/03/19 08:54 Cymbalta PO Not Given DAILY ELISABET Enoxaparin Sodium 80 mg 07/29/19 09:00 08/03/19 08:54 Lovenox SC 80 mg 0900,2100 ELISABET Administration Famotidine 20 mg 07/31/19 09:00 08/03/19 08:57 Pepcid PO 20 mg BID ELISABET Administration Potassium Chloride 40 meq/ 100 mls @ 50 mls/hr 07/29/19 12:59 07/29/19 14:24 Device IVPB 100 mls ASDIR PRN Administration FOR SERUM K+ 2.5 - 3.5 Dextrose/Sodium Chloride 1,000 mls @ 50 mls/hr 07/29/19 15:30 08/03/19 18:01 D5 1/2 Ns IV 1,000 mls .Q20H ELISABET Administration Azithromycin 500 mg/ Sodium 250 mls @ 250 mls/hr 07/31/19 09:00 08/03/19 08: 52 Chloride IVPB 250 mls 0900 ELISABET Administration Ceftriaxone Sodium 1 gm/ 100 mls @ 200 mls/hr 08/02/19 10:00 08/03/19 08:53 Sodium Chloride IVPB 100 mls 1000 ELISABET Administration Methylprednisolone Sodium Succinate 80 mg 07/30/19 09:00 08/03/19 08:55 Solu-Medrol IVP 80 mg DAILY ELISABET Administration Mometasone Furoate 100 mcg 07/30/19 18:30 08/03/19 06:53 Asmanex Hfa 100 Mcg INH Not Given BID-RT ELISABET Potassium Chloride 40 meq 08/03/19 09:00 08/03/19 08:51 K-Dur PO 40 meq DAILY ELISABET Administration Terazosin HCl 5 mg 07/30/19 21:00 08/02/19 20:52 Hytrin PO 5 mg QPM ELISABET Administration - Exam General Appearance: awake alert ENT: normocephalic atraumatic Neck: supple Heart: RRR, no murmur, no gallops, no rubs Respiratory: no wheezes, normal chest expansion, no tachypnea, rhonchi Gastrointestinal: soft, non-tender, non-distended, normal bowel sounds Hosp A/P - Plan Hosp A/P (1) Pneumonia due to COVID-19 virus Code(s): U07.1 - COVID-19; J12.89 - OTHER VIRAL PNEUMONIA Status: Acute Plan: Continue pulm support with Zithromax/Rocephin/Solumedrol, s/p convalescent plasma (2) Acute and chronic respiratory failure with hypoxia Code(s): J96.21 - ACUTE AND CHRONIC RESPIRATORY FAILURE WITH HYPOXIA Status: Acute Plan: Continue high-flow O2, Albuterol/Dulera/Solumedrol (3) COPD (chronic obstructive pulmonary disease) Status: Chronic (4) Hypokalemia Code(s): E87.6 - HYPOKALEMIA Status: Acute (5) Type 2 myocardial infarction Code(s): I21.A1 - MYOCARDIAL INFARCTION TYPE 2 Status: Acute - Plan 08/01: continue antibiotics, social group worker, respiratory therapy, DVT proph w/SCDs Continue pulmonary supportive mgmt Add Albuterol MDI 2 puffs q4h prn Continue Zithromax/Rocephin Continue Solumedrol KCL 40meq daily AM lab: BMP 08/02: The patient is requiring more oxygen today. Currently saturating in the low 90s on high flow nasal cannula at FiO2 of 90%. The patient has a large bulla on his right lung occupying the upper lobe. This might pose a risk with positive pressure ventilation.
[2019-08-03] MEDS: Atorvastatin Calcium 40 MG TAB PO SCH (20:45)
[2019-08-03] MEDS: Terazosin HCl 5 MG CAP PO SCH (20:45)
[2019-08-03] MEDS: Senokot S 8.6-50 MG TAB PO PRN (21:55)
[2019-08-03] MEDS: Calcium Carbonate 500 MG ChewTAB PO PRN (21:56)
[2019-08-04 03:47] LABS: Band 4 % (5-11); Hemoglobin 14.3 g/dL (14.0-18.0); Lymphocytes 6 % (21-51); MDiff Complete? YES; Mean Corpuscular HGB CONC 32.7 g/dL (32.0-36.0); Mean Corpuscular Hemoglobin 32.5 pg (27.0-31.0); Mean Corpuscular Volume 99.3 fL (78.0-98.0); Mean Platelet Volume 7.5 fL (7.4-10.4); Monocytes 3 % (0-10); Neutrophil 87 % (42-75); Platelet Count 349 thou/uL (130-400); Platelet Morphology Comment Appears Adequate; RBC Morphology Normal; Red Blood Cell (RBC) Count 4.41 mill/uL (4.70-6.10); White Blood Cell (WBC) Count 13.5 thou/uL (4.8-10.8)
[2019-08-04 03:56] LABS: ALT (SGPT) 43 U/L (8-55); AST (SGOT) 26 U/L (5-34); Albumin 2.4 g/dL (3.5-5.0); Alkaline Phosphatase 55 U/L (40-110); Anion Gap 12 mmol/L (10-20); BUN (Urea Nitrogen) 13 mg/dL (8.4-25.7); Bilirubin, Total 0.5 mg/dL (0.2-1.2); Calc. Creatinine Clearance 130 mL/min (70-130); Calcium 7.6 mg/dL (7.8-10.44); Carbon Dioxide 18 mmol/L (22-29); Chloride 109 mmol/L (98-107); Estimated GFR-MDRD Greater than 90; Globulin 2.8 g/dL (2.4-3.5); Glucose 146 mg/dL (70-105); Potassium 4.4 mmol/L (3.5-5.1); Protein, Total 5.2 g/dL (6.0-8.3); Sodium 135 mmol/L (136-145)
[2019-08-04] MEDS: Mometasone 100 MCG/PUFF (1 INHALER) INH SCH (08:18)
[2019-08-04] MEDS: methylPREDNISolone Sod Succ/PF 125 MG/2 ML VIAL IVP SCH (08:37)
[2019-08-04] MEDS: Clopidogrel Bisulfate 75 MG TAB PO SCH (08:37)
[2019-08-04] MEDS: Potassium Chloride 20 MEQ TAB PO SCH (08:38)
[2019-08-04] MEDS: DULoxetine 30 MG CAP PO SCH (08:38)
[2019-08-04] MEDS: Carvedilol 6.25 MG TAB PO SCH ×2 (08:38→21:26)
[2019-08-04] MEDS: Aspirin 81 mg Enteric Coated Tablet PO SCH (08:38)
[2019-08-04] MEDS: Enoxaparin Sodium 80 MG/0.8 ML SYRINGE SC SCH (08:39)
[2019-08-04] MEDS: Azithromycin 500 MG in Sodium Chloride 0.9% 250 ML 250 ML IVPB SCH (08:39)
[2019-08-04] MEDS: Amlodipine 5 MG TAB PO SCH (08:39)
[2019-08-04] MEDS: Dextrose 5 %-0.45 % NaCl 1,000 ML IV SCH (08:40)
[2019-08-04] MEDS: diphenhydrAMINE 50 MG CAP PO SCH ×2 (08:40→21:25)
[2019-08-04] MEDS: Famotidine 20 MG TAB PO SCH ×2 (08:40→21:25)
--- NOTE | 2019-08-04 08:41 | PDOC.HOSPP ---
- Subjective Encounter Date: 08/04/19 Subjective: The patient is still complaining of dyspnea on minimal activity. - Objective Vital Signs & Weight: Vital Signs (12 hours) BP 08/03/19 20:45 159/96 H Weight Admit Weight 178 lb 9.191 oz Weight 178 lb 9.191 oz Most Recent Monitor Data Heart Rate from ECG 77 NIBP 106/48 NIBP BP-Mean 67 Respiration from ECG 36 SpO2 95 I&O: 08/03/19 08/04/19 08/05/19 06:59 06:59 06:59 Intake Total 2715 3155 Output Total 2624 3400 Balance 90 -245 Result Diagrams: 08/04/19 03:20 08/04/19 03:20 Hospitalist ROS - Medication Medications: Active Medications Generic Name Dose Route Start Last Admin Trade Name Freq PRN Reason Stop Dose Admin Albuterol Sulfate 2 puff 08/01/19 09:59 08/01/19 20:02 Proventil Hfa INH 2 puff Q4H PRN Administration Dyspnea/Wheezing/SOB Amlodipine Besylate 5 mg 07/31/19 09:00 08/03/19 08:51 Norvasc PO 5 mg DAILY ELISABET Administration Aspirin 81 mg 07/31/19 09:00 08/03/19 08:51 Ecotrin PO 81 mg DAILY ELISABET Administration Atorvastatin Calcium 40 mg 07/30/19 21:00 08/03/19 20:45 Lipitor PO 40 mg HS ELISABET Administration Calcium Carbonate 1,000 mg 08/03/19 21:04 08/03/19 21:56 Tums PO 1,000 mg Q4H PRN Administration Heartburn or Indigestion Carvedilol 6.25 mg 07/30/19 21:00 08/03/19 20:45 Coreg PO 6.25 mg BID ELISABET Administration Clopidogrel Bisulfate 75 mg 07/31/19 09:00 08/03/19 08:51 Plavix PO 75 mg DAILY ELISABET Administration Diphenhydramine HCl 50 mg 07/30/19 21:00 08/03/19 20:45 Benadryl PO 50 mg BID ELISABET Administration Duloxetine HCl 30 mg 07/31/19 09:00 08/03/19 08:54 Cymbalta PO Not Given DAILY ELISABET Famotidine 20 mg 07/31/19 09:00 08/03/19 20:45 Pepcid PO 20 mg BID ELISABET Administration Potassium Chloride 40 meq/ 100 mls @ 50 mls/hr 07/29/19 12:59 07/29/19 14:24 Device IVPB 100 mls ASDIR PRN Administration FOR SERUM K+ 2.5 - 3.5 Dextrose/Sodium Chloride 1,000 mls @ 50 mls/hr 07/29/19 15:30 08/03/19 18:01 D5 1/2 Ns IV 1,000 mls .Q20H ELISABET Administration Azithromycin 500 mg/ Sodium 250 mls @ 250 mls/hr 07/31/19 09:00 08/03/19 08: 52 Chloride IVPB 250 mls 0900 ELISABET Administration Ceftriaxone Sodium 1 gm/ 100 mls @ 200 mls/hr 08/02/19 10:00 08/03/19 08:53 Sodium Chloride IVPB 100 mls 1000 ELISABET Administration Methylprednisolone Sodium Succinate 80 mg 07/30/19 09:00 08/03/19 08:55 Solu-Medrol IVP 80 mg DAILY ELISABET Administration Mometasone Furoate 100 mcg 07/30/19 18:30 08/04/19 08:18 Asmanex Hfa 100 Mcg INH 2 puff BID-RT ELISABET Administration Potassium Chloride 40 meq 08/03/19 09:00 08/03/19 08:51 K-Dur PO 40 meq DAILY ELISABET Administration Senna/Docusate Sodium 2 tab 08/03/19 21:04 08/03/19 21:55 Senokot S PO 2 tab BID PRN Administration Constipation Terazosin HCl 5 mg 07/30/19 21:00 08/03/19 20:45 Hytrin PO 5 mg QPM ELISABET Administration - Exam General Appearance: awake alert Neck: supple, no JVD Heart: RRR Respiratory: normal chest expansion, no tachypnea Gastrointestinal: soft, non-tender, non-distended Neurological: cranial nerve grossly intact, no focal deficits Hosp A/P - Plan Hosp A/P (1) Pneumonia due to COVID-19 virus Code(s): U07.1 - COVID-19; J12.89 - OTHER VIRAL PNEUMONIA Status: Acute Plan: (2) Acute and chronic respiratory failure with hypoxia Code(s): J96.21 - ACUTE AND CHRONIC RESPIRATORY FAILURE WITH HYPOXIA Status: Acute Plan: (3) COPD (chronic obstructive pulmonary disease) Status: Chronic (4) Hypokalemia Code(s): E87.6 - HYPOKALEMIA Status: Acute (5) Type 2 myocardial infarction Code(s): I21.A1 - MYOCARDIAL INFARCTION TYPE 2 Status: Acute - Plan COVID-19 pneumonia with COPD exacerbation causing acute on chronic hypoxic respiratory failure. Patient received convalescent plasma. His oxygenation is improving. Today he is on high flow nasal cannula with FiO2 of 60%. Continue corticosteroids, antibiotics, and bronchodilators.
[2019-08-04] MEDS: cefTRIAXone\\ROCEPHIN 1 GM in Sodium Chloride 0.9% 100 ML IVPB SCH (10:55)
[2019-08-04] MEDS: Atorvastatin Calcium 40 MG TAB PO SCH (21:25)
[2019-08-04] MEDS: Terazosin HCl 5 MG CAP PO SCH (21:25)
[2019-08-04] MEDS: Calcium Carbonate 500 MG ChewTAB PO PRN (21:25)
[2019-08-05 04:15] LABS: Band 3 % (5-11); Eosinophils 1 % (0-10); Hemoglobin 14.2 g/dL (14.0-18.0); Lymphocytes 8 % (21-51); MDiff Complete? YES; Mean Corpuscular HGB CONC 33.4 g/dL (32.0-36.0); Mean Corpuscular Hemoglobin 32.2 pg (27.0-31.0); Mean Corpuscular Volume 96.6 fL (78.0-98.0); Mean Platelet Volume 7.4 fL (7.4-10.4); Metamyelocyte 1 % (0-0); Monocytes 4 % (0-10); Neutrophil 83 % (42-75); Platelet Count 397 thou/uL (130-400); Platelet Morphology Comment Appears Adequate; RBC Distribution Width 12.7 % (11.5-14.5); Red Blood Cell (RBC) Count 4.42 mill/uL (4.70-6.10); White Blood Cell (WBC) Count 14.6 thou/uL (4.8-10.8)
[2019-08-05 04:16] LABS: Anion Gap 14 mmol/L (10-20); BUN (Urea Nitrogen) 18 mg/dL (8.4-25.7); Calc. Creatinine Clearance 123 mL/min (70-130); Carbon Dioxide 20 mmol/L (22-29); Chloride 108 mmol/L (98-107); Estimated GFR-MDRD Greater than 90; Glucose 149 mg/dL (70-105); Potassium 4.1 mmol/L (3.5-5.1); Sodium 138 mmol/L (136-145)
[2019-08-05] MEDS: Dextrose 5 %-0.45 % NaCl 1,000 ML IV SCH (07:03)
[2019-08-05] MEDS: Mometasone 100 MCG/PUFF (1 INHALER) INH SCH ×3 (07:03→17:41)
[2019-08-05] MEDS: DULoxetine 30 MG CAP PO SCH (07:36)
[2019-08-05] MEDS: Enoxaparin Sodium 40 MG/0.4 ML SYRINGE SC SCH (08:03)
[2019-08-05] MEDS: methylPREDNISolone Sod Succ/PF 125 MG/2 ML VIAL IVP SCH (08:03)
[2019-08-05] MEDS: Famotidine 20 MG TAB PO SCH ×2 (08:04→21:08)
[2019-08-05] MEDS: Azithromycin 500 MG in Sodium Chloride 0.9% 250 ML 250 ML IVPB SCH (08:04)
[2019-08-05] MEDS: Carvedilol 6.25 MG TAB PO SCH ×2 (08:05→21:37)
[2019-08-05] MEDS: Potassium Chloride 20 MEQ TAB PO SCH (08:05)
[2019-08-05] MEDS: diphenhydrAMINE 50 MG CAP PO SCH ×2 (08:05→21:08)
[2019-08-05] MEDS: Clopidogrel Bisulfate 75 MG TAB PO SCH (08:05)
[2019-08-05] MEDS: Amlodipine 5 MG TAB PO SCH (08:05)
[2019-08-05] MEDS: Aspirin 81 mg Enteric Coated Tablet PO SCH (08:05)
[2019-08-05] MEDS: cefTRIAXone\\ROCEPHIN 1 GM in Sodium Chloride 0.9% 100 ML IVPB SCH (08:08)
--- NOTE | 2019-08-05 20:19 | PDOC.HOSPP ---
- Subjective Encounter Date: 08/05/19 Subjective: Patient's condition has not changed significantly since yesterday. He is comfortable as long as he stays in the bed. Any minimal activity causes him to be short of breath. - Objective Vital Signs & Weight: Weight Admit Weight 178 lb 9.191 oz Weight 178 lb 9.191 oz Most Recent Monitor Data Heart Rate from ECG 92 NIBP 131/85 NIBP BP-Mean 100 Respiration from ECG 21 SpO2 88 I&O: 08/04/19 08/05/19 08/06/19 06:59 06:59 06:59 Intake Total 3155 1780 Output Total 3400 1900 1850 Balance -245 -1900 -70 Result Diagrams: 08/05/19 03:23 08/05/19 03:23 Hospitalist ROS - Medication Medications: Active Medications Generic Name Dose Route Start Last Admin Trade Name Freq PRN Reason Stop Dose Admin Albuterol Sulfate 2 puff 08/01/19 09:59 08/01/19 20:02 Proventil Hfa INH 2 puff Q4H PRN Administration Dyspnea/Wheezing/SOB Amlodipine Besylate 5 mg 07/31/19 09:00 08/05/19 08:05 Norvasc PO 5 mg DAILY ELISABET Administration Aspirin 81 mg 07/31/19 09:00 08/05/19 08:05 Ecotrin PO 81 mg DAILY ELISABET Administration Atorvastatin Calcium 40 mg 07/30/19 21:00 08/04/19 21:25 Lipitor PO 40 mg HS ELISABET Administration Calcium Carbonate 1,000 mg 08/03/19 21:04 08/04/19 21:25 Tums PO 1,000 mg Q4H PRN Administration Heartburn or Indigestion Carvedilol 6.25 mg 07/30/19 21:00 08/05/19 08:05 Coreg PO 6.25 mg BID ELISABET Administration Clopidogrel Bisulfate 75 mg 07/31/19 09:00 08/05/19 08:05 Plavix PO 75 mg DAILY ELISABET Administration Diphenhydramine HCl 50 mg 07/30/19 21:00 08/05/19 08:05 Benadryl PO 50 mg BID ELISABET Administration Duloxetine HCl 30 mg 07/31/19 09:00 08/05/19 07:36 Cymbalta PO Not Given DAILY ELISABET Enoxaparin Sodium 40 mg 08/05/19 09:00 08/05/19 08:03 Lovenox SC 40 mg 0900 ELISABET Administration Famotidine 20 mg 07/31/19 09:00 08/05/19 08:04 Pepcid PO 20 mg BID ELISABET Administration Potassium Chloride 40 meq/ 100 mls @ 50 mls/hr 07/29/19 12:59 07/29/19 14:24 Device IVPB 100 mls ASDIR PRN Administration FOR SERUM K+ 2.5 - 3.5 Dextrose/Sodium Chloride 1,000 mls @ 50 mls/hr 07/29/19 15:30 08/05/19 07:03 D5 1/2 Ns IV 1,000 mls .Q20H ELISABET Administration Azithromycin 500 mg/ Sodium 250 mls @ 250 mls/hr 07/31/19 09:00 08/05/19 08: 04 Chloride IVPB 250 mls 0900 ELISABET Administration Ceftriaxone Sodium 1 gm/ 100 mls @ 200 mls/hr 08/02/19 10:00 08/05/19 08:08 Sodium Chloride IVPB 100 mls 1000 ELISABET Administration Methylprednisolone Sodium Succinate 80 mg 07/30/19 09:00 08/05/19 08:03 Solu-Medrol IVP 80 mg DAILY ELISABET Administration Mometasone Furoate 100 mcg 07/30/19 18:30 08/05/19 17:41 Asmanex Hfa 100 Mcg INH 1 puff BID-RT ELISABET Administration Potassium Chloride 40 meq 08/03/19 09:00 08/05/19 08:05 K-Dur PO 40 meq DAILY ELISABET Administration Senna/Docusate Sodium 2 tab 08/03/19 21:04 08/03/19 21:55 Senokot S PO 2 tab BID PRN Administration Constipation Terazosin HCl 5 mg 07/30/19 21:00 08/04/19 21:25 Hytrin PO 5 mg QPM ELISABET Administration - Exam General Appearance: awake alert, ill appearing ENT: normocephalic atraumatic Neck: supple Heart: RRR Respiratory: normal chest expansion, no tachypnea Gastrointestinal: soft, non-tender, non-distended, normal bowel sounds Extremities: no cyanosis Neurological: cranial nerve grossly intact, no focal deficits Hosp A/P - Plan Hosp A/P (1) Pneumonia due to COVID-19 virus Code(s): U07.1 - COVID-19; J12.89 - OTHER VIRAL PNEUMONIA Status: Acute Plan: (2) Acute and chronic respiratory failure with hypoxia Code(s): J96.21 - ACUTE AND CHRONIC RESPIRATORY FAILURE WITH HYPOXIA Status: Acute Plan: (3) COPD (chronic obstructive pulmonary disease) Status: Chronic (4) Hypokalemia Code(s): E87.6 - HYPOKALEMIA Status: Acute (5) Type 2 myocardial infarction Code(s): I21.A1 - MYOCARDIAL INFARCTION TYPE 2 Status: Acute - Plan COVID-19 pneumonia with COPD exacerbation causing acute on chronic hypoxic respiratory failure. Patient received convalescent plasma. The patient is still requiring 60% FiO2 on high flow nasal cannula to maintain oxygen saturations in the low 90s. Hypoxia is exacerbated by his underlying COPD. Target oxygen saturation is 88-92. Continue to wean off high flow nasal cannula as long as the patient is within the target. Continue corticosteroids, antibiotics, and bronchodilators.
[2019-08-05] MEDS: Terazosin HCl 5 MG CAP PO SCH (21:08)
[2019-08-05] MEDS: Atorvastatin Calcium 40 MG TAB PO SCH (21:08)
[2019-08-05] MEDS: Calcium Carbonate 500 MG ChewTAB PO PRN (21:09)
[2019-08-06 03:41] LABS: Band 1 % (5-11); Hemoglobin 14.8 g/dL (14.0-18.0); Lymphocytes 4 % (21-51); MDiff Complete? YES; Mean Corpuscular HGB CONC 32.9 g/dL (32.0-36.0); Mean Corpuscular Hemoglobin 32.1 pg (27.0-31.0); Mean Corpuscular Volume 97.6 fL (78.0-98.0); Mean Platelet Volume 7.4 fL (7.4-10.4); Monocytes 1 % (0-10); Neutrophil 94 % (42-75); Platelet Count 377 thou/uL (130-400); Platelet Morphology Comment Appears Adequate; RBC Distribution Width 12.8 % (11.5-14.5); RBC Morphology Normal; White Blood Cell (WBC) Count 14.2 thou/uL (4.8-10.8)
[2019-08-06 03:45] LABS: Anion Gap 13 mmol/L (10-20); BUN (Urea Nitrogen) 17 mg/dL (8.4-25.7); Calc. Creatinine Clearance 123 mL/min (70-130); Calcium 8.4 mg/dL (7.8-10.44); Carbon Dioxide 21 mmol/L (22-29); Chloride 105 mmol/L (98-107); Estimated GFR-MDRD Greater than 90; Glucose 192 mg/dL (70-105); Potassium 4.5 mmol/L (3.5-5.1); Sodium 134 mmol/L (136-145)
[2019-08-06] MEDS: Dextrose 5 %-0.45 % NaCl 1,000 ML IV SCH (06:13)
[2019-08-06] MEDS: Mometasone 100 MCG/PUFF (1 INHALER) INH SCH ×2 (07:05→19:11)
[2019-08-06] MEDS: DULoxetine 30 MG CAP PO SCH (07:05)
[2019-08-06] MEDS: diphenhydrAMINE 50 MG CAP PO SCH ×2 (08:55→21:44)
[2019-08-06] MEDS: Clopidogrel Bisulfate 75 MG TAB PO SCH (08:55)
[2019-08-06] MEDS: Aspirin 81 mg Enteric Coated Tablet PO SCH (08:55)
[2019-08-06] MEDS: Carvedilol 6.25 MG TAB PO SCH ×2 (08:55→21:44)
[2019-08-06] MEDS: Amlodipine 5 MG TAB PO SCH (08:55)
[2019-08-06] MEDS: Enoxaparin Sodium 40 MG/0.4 ML SYRINGE SC SCH (08:55)
[2019-08-06] MEDS: Potassium Chloride 20 MEQ TAB PO SCH (08:55)
[2019-08-06] MEDS: Famotidine 20 MG TAB PO SCH ×2 (08:55→21:44)
[2019-08-06] MEDS: cefTRIAXone\\ROCEPHIN 1 GM in Sodium Chloride 0.9% 100 ML IVPB SCH (08:56)
[2019-08-06] MEDS: methylPREDNISolone Sod Succ/PF 125 MG/2 ML VIAL IVP SCH (08:56)
[2019-08-06] MEDS: Azithromycin 500 MG in Sodium Chloride 0.9% 250 ML 250 ML IVPB SCH (08:57)
--- NOTE | 2019-08-06 11:30 | PDOC.HOSPP ---
- Subjective Encounter Date: 08/06/19 Subjective: No new complaints - Objective Vital Signs & Weight: Vital Signs (12 hours) BP Pulse Ox 08/06/19 08:55 128/77 08/06/19 07:15 94 L 08/06/19 02:55 99 Weight Admit Weight 178 lb 9.191 oz Weight 178 lb 9.191 oz Most Recent Monitor Data Heart Rate from ECG 76 NIBP 111/70 NIBP BP-Mean 83 Respiration from ECG 25 SpO2 94 I&O: 08/05/19 08/06/19 08/07/19 06:59 06:59 06:59 Intake Total 2860 Output Total 1900 2800 Balance -1900 60 Result Diagrams: 08/06/19 03:13 08/06/19 03:13 Hospitalist ROS - Medication Medications: Active Medications Generic Name Dose Route Start Last Admin Trade Name Freq PRN Reason Stop Dose Admin Albuterol Sulfate 2 puff 08/01/19 09:59 08/01/19 20:02 Proventil Hfa INH 2 puff Q4H PRN Administration Dyspnea/Wheezing/SOB Amlodipine Besylate 5 mg 07/31/19 09:00 08/06/19 08:55 Norvasc PO 5 mg DAILY ELISABET Administration Aspirin 81 mg 07/31/19 09:00 08/06/19 08:55 Ecotrin PO 81 mg DAILY ELISABET Administration Atorvastatin Calcium 40 mg 07/30/19 21:00 08/05/19 21:08 Lipitor PO 40 mg HS ELISABET Administration Calcium Carbonate 1,000 mg 08/03/19 21:04 08/05/19 21:09 Tums PO 1,000 mg Q4H PRN Administration Heartburn or Indigestion Carvedilol 6.25 mg 07/30/19 21:00 08/06/19 08:55 Coreg PO 6.25 mg BID ELISABET Administration Clopidogrel Bisulfate 75 mg 07/31/19 09:00 08/06/19 08:55 Plavix PO 75 mg DAILY ELISABET Administration Diphenhydramine HCl 50 mg 07/30/19 21:00 08/06/19 08:55 Benadryl PO 50 mg BID ELISABET Administration Duloxetine HCl 30 mg 07/31/19 09:00 08/06/19 07:05 Cymbalta PO Not Given DAILY ELISABET Enoxaparin Sodium 40 mg 08/05/19 09:00 08/06/19 08:55 Lovenox SC 40 mg 0900 ELISABET Administration Famotidine 20 mg 07/31/19 09:00 08/06/19 08:55 Pepcid PO 20 mg BID ELISABET Administration Potassium Chloride 40 meq/ 100 mls @ 50 mls/hr 07/29/19 12:59 07/29/19 14:24 Device IVPB 100 mls ASDIR PRN Administration FOR SERUM K+ 2.5 - 3.5 Dextrose/Sodium Chloride 1,000 mls @ 50 mls/hr 07/29/19 15:30 08/06/19 06:13 D5 1/2 Ns IV 1,000 mls .Q20H ELISABET Administration Azithromycin 500 mg/ Sodium 250 mls @ 250 mls/hr 07/31/19 09:00 08/06/19 08: 57 Chloride IVPB 250 mls 0900 ELISABET Administration Ceftriaxone Sodium 1 gm/ 100 mls @ 200 mls/hr 08/02/19 10:00 08/06/19 08:56 Sodium Chloride IVPB 100 mls 1000 ELISABET Administration Methylprednisolone Sodium Succinate 80 mg 07/30/19 09:00 08/06/19 08:56 Solu-Medrol IVP 80 mg DAILY ELISABET Administration Mometasone Furoate 100 mcg 07/30/19 18:30 08/06/19 07:05 Asmanex Hfa 100 Mcg INH 1 puff BID-RT ELISABET Administration Potassium Chloride 40 meq 08/03/19 09:00 08/06/19 08:55 K-Dur PO 40 meq DAILY ELISABET Administration Senna/Docusate Sodium 2 tab 08/03/19 21:04 08/03/19 21:55 Senokot S PO 2 tab BID PRN Administration Constipation Terazosin HCl 5 mg 07/30/19 21:00 08/05/19 21:08 Hytrin PO 5 mg QPM ELISABET Administration - Exam General Appearance: awake alert Neck: supple Heart: RRR Respiratory: normal chest expansion, no tachypnea Gastrointestinal: soft, non-tender, non-distended, normal bowel sounds Extremities: no cyanosis, no clubbing Neurological: cranial nerve grossly intact Hosp A/P - Plan Hosp A/P (1) Pneumonia due to COVID-19 virus Code(s): U07.1 - COVID-19; J12.89 - OTHER VIRAL PNEUMONIA Status: Acute Plan: (2) Acute and chronic respiratory failure with hypoxia Code(s): J96.21 - ACUTE AND CHRONIC RESPIRATORY FAILURE WITH HYPOXIA Status: Acute Plan: (3) COPD (chronic obstructive pulmonary disease) Status: Chronic (4) Hypokalemia Code(s): E87.6 - HYPOKALEMIA Status: Acute (5) Type 2 myocardial infarction Code(s): I21.A1 - MYOCARDIAL INFARCTION TYPE 2 Status: Acute - Plan COVID-19 pneumonia with COPD exacerbation causing acute on chronic hypoxic respiratory failure. Patient received convalescent plasma. The patient is saturating 99% on high flow nasal cannula FiO2 60%. Hypoxia is exacerbated by his underlying COPD. Start weaning off high flow nasal cannula to achieve a target oxygen saturation 88 to 92%. Continue corticosteroids, antibiotics, and bronchodilators.
[2019-08-06] MEDS: Calcium Carbonate 500 MG ChewTAB PO PRN ×2 (18:30→21:44)
[2019-08-06] MEDS: Atorvastatin Calcium 40 MG TAB PO SCH (21:44)
[2019-08-06] MEDS: Terazosin HCl 5 MG CAP PO SCH (21:44)
[2019-08-07 04:02] LABS: Hemoglobin 14.5 g/dL (14.0-18.0); Mean Corpuscular HGB CONC 33.3 g/dL (32.0-36.0); Mean Corpuscular Hemoglobin 32.1 pg (27.0-31.0); Mean Corpuscular Volume 96.4 fL (78.0-98.0); Mean Platelet Volume 7.4 fL (7.4-10.4); Platelet Count 391 thou/uL (130-400); RBC Distribution Width 12.6 % (11.5-14.5); Red Blood Cell (RBC) Count 4.51 mill/uL (4.70-6.10); White Blood Cell (WBC) Count 14.2 thou/uL (4.8-10.8)
[2019-08-07 04:03] LABS: Band 5 % (5-11); Eosinophils 1 % (0-10); Lymphocytes 5 % (21-51); MDiff Complete? YES; Monocytes 7 % (0-10); Neutrophil 82 % (42-75); Platelet Morphology Comment Appears Adequate
[2019-08-07] MEDS: Dextrose 5 %-0.45 % NaCl 1,000 ML IV SCH ×2 (06:41→10:06)
[2019-08-07 07:29] LABS: Anion Gap 13 mmol/L (10-20); BUN (Urea Nitrogen) 18 mg/dL (8.4-25.7); Calc. Creatinine Clearance 118 mL/min (70-130); Calcium 8.5 mg/dL (7.8-10.44); Carbon Dioxide 21 mmol/L (22-29); Chloride 105 mmol/L (98-107); Estimated GFR-MDRD Greater than 90; Glucose 175 mg/dL (70-105); Potassium 4.2 mmol/L (3.5-5.1); Sodium 135 mmol/L (136-145)
[2019-08-07] MEDS: Mometasone 100 MCG/PUFF (1 INHALER) INH SCH ×2 (08:39→17:50)
[2019-08-07] MEDS ORDERED: Dexamethasone 4 MG TAB PO SCH ×2 (09:30)
[2019-08-07] MEDS: Calcium Carbonate 500 MG ChewTAB PO PRN ×2 (10:03→18:09)
[2019-08-07] MEDS: cefTRIAXone\\ROCEPHIN 1 GM in Sodium Chloride 0.9% 100 ML IVPB SCH (10:04)
[2019-08-07] MEDS: Enoxaparin Sodium 40 MG/0.4 ML SYRINGE SC SCH (10:04)
[2019-08-07] MEDS: Aspirin 81 mg Enteric Coated Tablet PO SCH (10:04)
[2019-08-07] MEDS: Potassium Chloride 20 MEQ TAB PO SCH (10:05)
[2019-08-07] MEDS: Carvedilol 6.25 MG TAB PO SCH ×2 (10:05→19:54)
[2019-08-07] MEDS: diphenhydrAMINE 50 MG CAP PO SCH ×2 (10:05→19:55)
[2019-08-07] MEDS: Clopidogrel Bisulfate 75 MG TAB PO SCH (10:06)
[2019-08-07] MEDS: Amlodipine 5 MG TAB PO SCH (10:06)
[2019-08-07] MEDS: methylPREDNISolone Sod Succ/PF 125 MG/2 ML VIAL IVP SCH (10:07)
[2019-08-07] MEDS: Famotidine 20 MG TAB PO SCH (10:09)
[2019-08-07] MEDS: DULoxetine 30 MG CAP PO SCH (10:22)
[2019-08-07] MEDS: Atorvastatin Calcium 40 MG TAB PO SCH (19:55)
[2019-08-07] MEDS: Terazosin HCl 5 MG CAP PO SCH (19:55)
--- NOTE | 2019-08-07 21:46 | PDOC.HOSPP ---
- Subjective Encounter Date: 08/07/19 - Objective Vital Signs & Weight: Vital Signs (12 hours) Temp BP 08/07/19 19:54 108/76 08/07/19 16:00 98.6 F 08/07/19 11:45 98.6 F 08/07/19 10:06 108/76 08/07/19 10:05 108/69 Weight Admit Weight 178 lb 9.191 oz Weight 178 lb 9.191 oz Most Recent Monitor Data Heart Rate from ECG 98 NIBP 117/76 NIBP BP-Mean 89 Respiration from ECG 17 SpO2 94 I&O: 08/06/19 08/07/19 08/08/19 06:59 06:59 06:59 Intake Total 2860 2955 890 Output Total 2800 2975 1500 Balance 60 -20 -610 Result Diagrams: 08/07/19 03:10 08/07/19 07:02 Hospitalist ROS - Medication Medications: Active Medications Generic Name Dose Route Start Last Admin Trade Name Freq PRN Reason Stop Dose Admin Albuterol Sulfate 2 puff 08/01/19 09:59 08/01/19 20:02 Proventil Hfa INH 2 puff Q4H PRN Administration Dyspnea/Wheezing/SOB Amlodipine Besylate 5 mg 07/31/19 09:00 08/07/19 10:06 Norvasc PO 5 mg DAILY ELISABET Administration Aspirin 81 mg 07/31/19 09:00 08/07/19 10:04 Ecotrin PO 81 mg DAILY ELISABET Administration Atorvastatin Calcium 40 mg 07/30/19 21:00 08/07/19 19:55 Lipitor PO 40 mg HS ELISABET Administration Calcium Carbonate 1,000 mg 08/03/19 21:04 08/07/19 18:09 Tums PO 1,000 mg Q4H PRN Administration Heartburn or Indigestion Carvedilol 6.25 mg 07/30/19 21:00 08/07/19 19:54 Coreg PO 6.25 mg BID ELISABET Administration Clopidogrel Bisulfate 75 mg 07/31/19 09:00 08/07/19 10:06 Plavix PO 75 mg DAILY ELISABET Administration Diphenhydramine HCl 50 mg 07/30/19 21:00 08/07/19 19:55 Benadryl PO 50 mg BID ELISABET Administration Enoxaparin Sodium 40 mg 08/05/19 09:00 08/07/19 10:04 Lovenox SC 40 mg 0900 ELISABET Administration Potassium Chloride 40 meq/ 100 mls @ 50 mls/hr 07/29/19 12:59 07/29/19 14:24 Device IVPB 100 mls ASDIR PRN Administration FOR SERUM K+ 2.5 - 3.5 Dextrose/Sodium Chloride 1,000 mls @ 50 mls/hr 07/29/19 15:30 08/07/19 10:06 D5 1/2 Ns IV 1,000 mls .Q20H ELISABET Administration Azithromycin 500 mg/ Sodium 250 mls @ 250 mls/hr 07/31/19 09:00 08/06/19 08: 57 Chloride IVPB 250 mls 0900 ELISABET Administration Ceftriaxone Sodium 1 gm/ 100 mls @ 200 mls/hr 08/02/19 10:00 08/07/19 10:04 Sodium Chloride IVPB 100 mls 1000 ELISABET Administration Methylprednisolone Sodium Succinate 80 mg 07/30/19 09:00 08/07/19 10:07 Solu-Medrol IVP 80 mg DAILY ELISABET Administration Mometasone Furoate 100 mcg 07/30/19 18:30 08/07/19 17:50 Asmanex Hfa 100 Mcg INH 2 puff BID-RT ELISABET Administration Potassium Chloride 40 meq 08/03/19 09:00 08/07/19 10:05 K-Dur PO 40 meq DAILY ELISABET Administration Senna/Docusate Sodium 2 tab 08/03/19 21:04 08/03/19 21:55 Senokot S PO 2 tab BID PRN Administration Constipation Sodium Chloride 10 ml 08/07/19 21:00 08/07/19 19:55 Flush - Normal Saline IVF 10 ml Q12HR ELISABET Administration Terazosin HCl 5 mg 07/30/19 21:00 08/07/19 19:55 Hytrin PO 5 mg QPM ELISABET Administration - Exam General Appearance: awake alert ENT: normocephalic atraumatic Neck: supple Heart: RRR Respiratory: normal chest expansion, no tachypnea Gastrointestinal: soft Extremities: no cyanosis Neurological: cranial nerve grossly intact, no focal deficits Hosp A/P - Plan Hosp A/P (1) Pneumonia due to COVID-19 virus Code(s): U07.1 - COVID-19; J12.89 - OTHER VIRAL PNEUMONIA Status: Acute Plan: (2) Acute and chronic respiratory failure with hypoxia Code(s): J96.21 - ACUTE AND CHRONIC RESPIRATORY FAILURE WITH HYPOXIA Status: Acute Plan: (3) COPD (chronic obstructive pulmonary disease) Status: Chronic (4) Hypokalemia Code(s): E87.6 - HYPOKALEMIA Status: Acute (5) Type 2 myocardial infarction Code(s): I21.A1 - MYOCARDIAL INFARCTION TYPE 2 Status: Acute - Plan COVID-19 pneumonia with COPD exacerbation causing acute on chronic hypoxic respiratory failure. Patient received convalescent plasma. Remains hypoxic. Continue high flow nasal cannula. Decadron initiated. Hypoxia is exacerbated by his underlying COPD. Start weaning off high flow nasal cannula to achieve a target oxygen saturation 88 to 92%.
[2019-08-08 04:17] LABS: Band 1 % (5-11); Hemoglobin 14.3 g/dL (14.0-18.0); Lymphocytes 2 % (21-51); MDiff Complete? YES; Mean Corpuscular HGB CONC 31.7 g/dL (32.0-36.0); Mean Corpuscular Hemoglobin 30.4 pg (27.0-31.0); Mean Corpuscular Volume 95.8 fL (78.0-98.0); Mean Platelet Volume 7.3 fL (7.4-10.4); Monocytes 9 % (0-10); Neutrophil 88 % (42-75); Platelet Count 322 thou/uL (130-400); Platelet Morphology Comment Appears Adequate; RBC Distribution Width 12.5 % (11.5-14.5); RBC Morphology Normal; White Blood Cell (WBC) Count 13.1 thou/uL (4.8-10.8)
[2019-08-08 04:27] LABS: Anion Gap 14 mmol/L (10-20); BUN (Urea Nitrogen) 19 mg/dL (8.4-25.7); Calc. Creatinine Clearance 120 mL/min (70-130); Calcium 8.3 mg/dL (7.8-10.44); Carbon Dioxide 21 mmol/L (22-29); Chloride 104 mmol/L (98-107); Estimated GFR-MDRD Greater than 90; Glucose 241 mg/dL (70-105); Potassium 4.3 mmol/L (3.5-5.1); Sodium 135 mmol/L (136-145)
[2019-08-08] MEDS: Azithromycin 500 MG in Sodium Chloride 0.9% 250 ML 250 ML IVPB SCH (08:37)
[2019-08-08] MEDS: methylPREDNISolone Sod Succ/PF 125 MG/2 ML VIAL IVP SCH (08:38)
[2019-08-08] MEDS: Dextrose 5 %-0.45 % NaCl 1,000 ML IV SCH (08:38)
[2019-08-08] MEDS: Aspirin 81 mg Enteric Coated Tablet PO SCH (08:40)
[2019-08-08] MEDS: diphenhydrAMINE 50 MG CAP PO SCH ×2 (08:40→20:57)
[2019-08-08] MEDS: Potassium Chloride 20 MEQ TAB PO SCH (08:41)
[2019-08-08] MEDS: Calcium Carbonate 500 MG ChewTAB PO PRN ×3 (08:41→20:57)
[2019-08-08] MEDS: Clopidogrel Bisulfate 75 MG TAB PO SCH (08:44)
[2019-08-08] MEDS: Dexamethasone 4 MG TAB PO SCH (08:45)
[2019-08-08] MEDS: Enoxaparin Sodium 40 MG/0.4 ML SYRINGE SC SCH (08:46)
[2019-08-08] MEDS: cefTRIAXone\\ROCEPHIN 1 GM in Sodium Chloride 0.9% 100 ML IVPB SCH (08:47)
[2019-08-08] MEDS: Mometasone 100 MCG/PUFF (1 INHALER) INH SCH ×2 (08:49→21:45)
[2019-08-08] MEDS: Amlodipine 5 MG TAB PO SCH ×2 (08:55→09:24)
[2019-08-08] MEDS: Carvedilol 6.25 MG TAB PO SCH ×3 (08:55→20:58)
--- NOTE | 2019-08-08 15:04 | PDOC.HOSPP ---
- Subjective Encounter Date: 08/08/19 - Objective Vital Signs & Weight: Vital Signs (12 hours) BP Pulse Ox 08/08/19 09:26 108/76 08/08/19 09:24 108/76 08/08/19 08:55 108/76 08/08/19 07:59 95 Weight Admit Weight 178 lb 9.191 oz Weight 178 lb 9.191 oz Most Recent Monitor Data Heart Rate from ECG 65 NIBP 106/66 NIBP BP-Mean 79 Respiration from ECG 19 SpO2 99 I&O: 08/07/19 08/08/19 08/09/19 06:59 06:59 06:59 Intake Total 2955 1970 Output Total 2975 1500 Balance -20 470 Result Diagrams: 08/08/19 03:24 08/08/19 03:24 Hospitalist ROS - Medication Medications: Active Medications Generic Name Dose Route Start Last Admin Trade Name Freq PRN Reason Stop Dose Admin Albuterol Sulfate 2 puff 08/01/19 09:59 08/01/19 20:02 Proventil Hfa INH 2 puff Q4H PRN Administration Dyspnea/Wheezing/SOB Amlodipine Besylate 5 mg 07/31/19 09:00 08/08/19 09:24 Norvasc PO 5 mg DAILY ELISABET Administration Aspirin 81 mg 07/31/19 09:00 08/08/19 08:40 Ecotrin PO 81 mg DAILY ELISABET Administration Atorvastatin Calcium 40 mg 07/30/19 21:00 08/07/19 19:55 Lipitor PO 40 mg HS ELISABET Administration Calcium Carbonate 1,000 mg 08/03/19 21:04 08/08/19 12:50 Tums PO 1,000 mg Q4H PRN Administration Heartburn or Indigestion Carvedilol 6.25 mg 07/30/19 21:00 08/08/19 09:26 Coreg PO 6.25 mg BID ELISABET Administration Clopidogrel Bisulfate 75 mg 07/31/19 09:00 08/08/19 08:44 Plavix PO 75 mg DAILY ELISABET Administration Dexamethasone 6 mg 08/08/19 08:00 08/08/19 08:45 Decadron PO 6 mg QAM-WM ELISABET Administration Diphenhydramine HCl 50 mg 07/30/19 21:00 08/08/19 08:40 Benadryl PO 50 mg BID ELISABET Administration Enoxaparin Sodium 40 mg 08/05/19 09:00 08/08/19 08:46 Lovenox SC 40 mg 0900 ELISABET Administration Potassium Chloride 40 meq/ 100 mls @ 50 mls/hr 07/29/19 12:59 07/29/19 14:24 Device IVPB 100 mls ASDIR PRN Administration FOR SERUM K+ 2.5 - 3.5 Dextrose/Sodium Chloride 1,000 mls @ 50 mls/hr 07/29/19 15:30 08/08/19 08:38 D5 1/2 Ns IV 1,000 mls .Q20H ELISABET Administration Azithromycin 500 mg/ Sodium 250 mls @ 250 mls/hr 07/31/19 09:00 08/08/19 08: 37 Chloride IVPB 250 mls 0900 ELISABET Administration Ceftriaxone Sodium 1 gm/ 100 mls @ 200 mls/hr 08/02/19 10:00 08/08/19 08:47 Sodium Chloride IVPB 100 mls 1000 ELISABET Administration Mometasone Furoate 100 mcg 07/30/19 18:30 08/08/19 08:49 Asmanex Hfa 100 Mcg INH 2 puff BID-RT ELISABET Administration Pantoprazole Sodium 40 mg 08/08/19 09:00 08/08/19 08:44 Protonix PO 40 mg DAILY ELISABET Administration Potassium Chloride 40 meq 08/03/19 09:00 08/08/19 08:41 K-Dur PO 40 meq DAILY ELISABET Administration Senna/Docusate Sodium 2 tab 08/03/19 21:04 08/03/19 21:55 Senokot S PO 2 tab BID PRN Administration Constipation Sodium Chloride 10 ml 08/07/19 21:00 08/08/19 08:46 Flush - Normal Saline IVF 10 ml Q12HR ELISABET Administration Terazosin HCl 5 mg 07/30/19 21:00 08/07/19 19:55 Hytrin PO 5 mg QPM ELISABET Administration - Exam General Appearance: awake alert ENT: normocephalic atraumatic Neck: supple Heart: RRR Respiratory: normal chest expansion, no tachypnea Gastrointestinal: soft, normal bowel sounds, no palpable masses Neurological: cranial nerve grossly intact, no focal deficits Hosp A/P - Plan Hosp A/P (1) Pneumonia due to COVID-19 virus Code(s): U07.1 - COVID-19; J12.89 - OTHER VIRAL PNEUMONIA Status: Acute Plan: (2) Acute and chronic respiratory failure with hypoxia Code(s): J96.21 - ACUTE AND CHRONIC RESPIRATORY FAILURE WITH HYPOXIA Status: Acute Plan: (3) COPD (chronic obstructive pulmonary disease) Status: Chronic (4) Hypokalemia Code(s): E87.6 - HYPOKALEMIA Status: Acute (5) Type 2 myocardial infarction Code(s): I21.A1 - MYOCARDIAL INFARCTION TYPE 2 Status: Acute - Plan COVID-19 pneumonia with COPD exacerbation causing acute on chronic hypoxic respiratory failure. Patient received convalescent plasma. Remains hypoxic. Continue high flow nasal cannula. Decadron day 04/01. Hypoxia is exacerbated by his underlying COPD. Start weaning off high flow nasal cannula to achieve a target oxygen saturation 88 to 92%. DC IV antibiotics.
[2019-08-08] MEDS: Terazosin HCl 5 MG CAP PO SCH (20:57)
[2019-08-08] MEDS: Atorvastatin Calcium 40 MG TAB PO SCH (20:57)
[2019-08-09 04:01] LABS: PTT 25.8 sec (22.9-36.1)
[2019-08-09 04:02] LABS: D-Dimer Test 0.46 *mcg/mL (0.27-0.43); Prothrombin Time 13.3 sec (12.0-14.7)
[2019-08-09] MEDS: Mometasone 100 MCG/PUFF (1 INHALER) INH SCH ×2 (08:45→18:41)
[2019-08-09] MEDS: Enoxaparin Sodium 40 MG/0.4 ML SYRINGE SC SCH (08:46)
[2019-08-09] MEDS: Aspirin 81 mg Enteric Coated Tablet PO SCH (08:47)
[2019-08-09] MEDS: diphenhydrAMINE 50 MG CAP PO SCH ×2 (08:47→20:34)
[2019-08-09] MEDS: Calcium Carbonate 500 MG ChewTAB PO PRN ×3 (08:47→20:33)
[2019-08-09] MEDS: Carvedilol 6.25 MG TAB PO SCH ×2 (08:47→20:34)
[2019-08-09] MEDS: Potassium Chloride 20 MEQ TAB PO SCH (08:47)
[2019-08-09] MEDS: Clopidogrel Bisulfate 75 MG TAB PO SCH (08:49)
[2019-08-09] MEDS: Dexamethasone 4 MG TAB PO SCH (08:49)
[2019-08-09] MEDS: Amlodipine 5 MG TAB PO SCH (08:49)
[2019-08-09] MEDS: Dextrose 5 %-0.45 % NaCl 1,000 ML IV SCH (08:51)
--- NOTE | 2019-08-09 19:00 | PDOC.HOSPP ---
- Subjective Encounter Date: 08/09/19 Subjective: Denies any SOB. - Objective Vital Signs & Weight: Vital Signs (12 hours) Pulse BP Pulse Ox 08/09/19 08:49 69 110/70 08/09/19 08:47 110/70 08/09/19 07:57 95 Weight Admit Weight 178 lb 9.191 oz Weight 178 lb 9.191 oz Most Recent Monitor Data Heart Rate from ECG 76 NIBP 102/57 NIBP BP-Mean 72 Respiration from ECG 23 SpO2 97 I&O: 08/08/19 08/09/19 08/10/19 06:59 06:59 06:59 Intake Total 1970 2500 Output Total 1500 2650 Balance 470 -150 Result Diagrams: 08/08/19 03:24 08/08/19 03:24 Hospitalist ROS - Medication Medications: Active Medications Generic Name Dose Route Start Last Admin Trade Name Freq PRN Reason Stop Dose Admin Albuterol Sulfate 2 puff 08/01/19 09:59 08/01/19 20:02 Proventil Hfa INH 2 puff Q4H PRN Administration Dyspnea/Wheezing/SOB Amlodipine Besylate 5 mg 07/31/19 09:00 08/09/19 08:49 Norvasc PO 5 mg DAILY ELISABET Administration Aspirin 81 mg 07/31/19 09:00 08/09/19 08:47 Ecotrin PO 81 mg DAILY ELISABET Administration Atorvastatin Calcium 40 mg 07/30/19 21:00 08/08/19 20:57 Lipitor PO 40 mg HS ELISABET Administration Calcium Carbonate 1,000 mg 08/03/19 21:04 08/09/19 12:44 Tums PO 1,000 mg Q4H PRN Administration Heartburn or Indigestion Carvedilol 6.25 mg 07/30/19 21:00 08/09/19 08:47 Coreg PO 6.25 mg BID ELISABET Administration Clopidogrel Bisulfate 75 mg 07/31/19 09:00 08/09/19 08:49 Plavix PO 75 mg DAILY ELISABET Administration Dexamethasone 6 mg 08/08/19 08:00 08/09/19 08:49 Decadron PO 6 mg QAM-WM ELISABET Administration Diphenhydramine HCl 50 mg 07/30/19 21:00 08/09/19 08:47 Benadryl PO 50 mg BID ELISABET Administration Enoxaparin Sodium 40 mg 08/05/19 09:00 08/09/19 08:46 Lovenox SC 40 mg 0900 ELISABET Administration Potassium Chloride 40 meq/ 100 mls @ 50 mls/hr 07/29/19 12:59 07/29/19 14:24 Device IVPB 100 mls ASDIR PRN Administration FOR SERUM K+ 2.5 - 3.5 Dextrose/Sodium Chloride 1,000 mls @ 50 mls/hr 07/29/19 15:30 08/09/19 08:51 D5 1/2 Ns IV 1,000 mls .Q20H ELISABET Administration Mometasone Furoate 100 mcg 07/30/19 18:30 08/09/19 18:41 Asmanex Hfa 100 Mcg INH 2 puff BID-RT ELISABET Administration Pantoprazole Sodium 40 mg 08/08/19 09:00 08/09/19 08:47 Protonix PO 40 mg DAILY ELISABET Administration Potassium Chloride 40 meq 08/03/19 09:00 08/09/19 08:47 K-Dur PO 40 meq DAILY ELISABET Administration Senna/Docusate Sodium 2 tab 08/03/19 21:04 08/03/19 21:55 Senokot S PO 2 tab BID PRN Administration Constipation Sodium Chloride 10 ml 08/07/19 21:00 08/09/19 08:51 Flush - Normal Saline IVF 10 ml Q12HR ELISABET Administration Terazosin HCl 5 mg 07/30/19 21:00 08/08/19 20:57 Hytrin PO 5 mg QPM ELISABET Administration - Exam General Appearance: awake alert Neck: supple Respiratory: normal chest expansion, no tachypnea Extremities: no cyanosis Neurological: cranial nerve grossly intact Hosp A/P - Plan Hosp A/P (1) Pneumonia due to COVID-19 virus Code(s): U07.1 - COVID-19; J12.89 - OTHER VIRAL PNEUMONIA Status: Acute Plan: (2) Acute and chronic respiratory failure with hypoxia Code(s): J96.21 - ACUTE AND CHRONIC RESPIRATORY FAILURE WITH HYPOXIA Status: Acute Plan: (3) COPD (chronic obstructive pulmonary disease) Status: Chronic (4) Hypokalemia Code(s): E87.6 - HYPOKALEMIA Status: Acute (5) Type 2 myocardial infarction Code(s): I21.A1 - MYOCARDIAL INFARCTION TYPE 2 Status: Acute - Plan COVID-19 pneumonia with COPD exacerbation causing acute on chronic hypoxic respiratory failure. Patient received convalescent plasma. Remains hypoxic. Continue high flow nasal cannula. Decadron day 04/29. Hypoxia is exacerbated by his underlying COPD. Start weaning off high flow nasal cannula to achieve a target oxygen saturation 88 to 92%. DC IV antibiotics. Check ABG on 4L NC.
[2019-08-09] MEDS: Terazosin HCl 5 MG CAP PO SCH (20:33)
[2019-08-09] MEDS: Atorvastatin Calcium 40 MG TAB PO SCH (20:35)
[2019-08-10] MEDS: Mometasone 100 MCG/PUFF (1 INHALER) INH SCH ×2 (06:54→18:14)
[2019-08-10] MEDS: Dextrose 5 %-0.45 % NaCl 1,000 ML IV SCH (08:00)
[2019-08-10] MEDS: Enoxaparin Sodium 40 MG/0.4 ML SYRINGE SC SCH (09:36)
[2019-08-10] MEDS: Potassium Chloride 20 MEQ TAB PO SCH (09:36)
[2019-08-10] MEDS: Aspirin 81 mg Enteric Coated Tablet PO SCH (09:36)
[2019-08-10] MEDS: diphenhydrAMINE 50 MG CAP PO SCH ×2 (09:36→20:30)
[2019-08-10] MEDS: Dexamethasone 4 MG TAB PO SCH (09:37)
[2019-08-10] MEDS: Amlodipine 5 MG TAB PO SCH (09:37)
[2019-08-10] MEDS: Carvedilol 6.25 MG TAB PO SCH ×2 (09:37→20:30)
[2019-08-10] MEDS: Clopidogrel Bisulfate 75 MG TAB PO SCH (09:37)
--- NOTE | 2019-08-10 15:16 | EKG ---
Test Reason : Blood Pressure : / mmHG Vent. Rate : 095 BPM Atrial Rate : 095 BPM P-R Int : 136 ms QRS Dur : 076 ms QT Int : 372 ms P-R-T Axes : 077 -29 036 degrees QTc Int : 467 ms Normal sinus rhythm Inferior infarct , age undetermined Abnormal ECG Confirmed by RASHIDA GASPAR M.D. ([id number]), publication editor HARMAN TEIXEIRA ([id number]) on 08/10/2019 3:16:20 PM Referred By: Confirmed By:RASHIDA GASPAR M.D.
[2019-08-10] MEDS: Atorvastatin Calcium 40 MG TAB PO SCH (20:29)
[2019-08-10] MEDS: Terazosin HCl 5 MG CAP PO SCH (20:29)
[2019-08-10] MEDS: Calcium Carbonate 500 MG ChewTAB PO PRN (20:35)
--- NOTE | 2019-08-10 22:13 | PDOC.HOSPP ---
- Subjective Encounter Date: 08/10/19 - Objective Vital Signs & Weight: Vital Signs (12 hours) BP Pulse Ox 08/10/19 20:30 98/55 L 08/10/19 19:46 95 Weight Admit Weight 178 lb 9.191 oz Weight 178 lb 9.191 oz Most Recent Monitor Data Heart Rate from ECG 99 NIBP 110/64 NIBP BP-Mean 79 Respiration from ECG 24 SpO2 97 I&O: 08/09/19 08/10/19 08/11/19 06:59 06:59 06:59 Intake Total 2500 1830 1600 Output Total 2650 2600 1650 Balance -150 -770 -50 Result Diagrams: 08/08/19 03:24 08/08/19 03:24 Hospitalist ROS - Medication Medications: Active Medications Generic Name Dose Route Start Last Admin Trade Name Freq PRN Reason Stop Dose Admin Albuterol Sulfate 2 puff 08/01/19 09:59 08/01/19 20:02 Proventil Hfa INH 2 puff Q4H PRN Administration Dyspnea/Wheezing/SOB Amlodipine Besylate 5 mg 07/31/19 09:00 08/10/19 09:37 Norvasc PO 5 mg DAILY ELISABET Administration Aspirin 81 mg 07/31/19 09:00 08/10/19 09:36 Ecotrin PO 81 mg DAILY ELISABET Administration Atorvastatin Calcium 40 mg 07/30/19 21:00 08/10/19 20:29 Lipitor PO 40 mg HS ELISABET Administration Calcium Carbonate 1,000 mg 08/03/19 21:04 08/10/19 20:35 Tums PO 1,000 mg Q4H PRN Administration Heartburn or Indigestion Carvedilol 6.25 mg 07/30/19 21:00 08/10/19 20:30 Coreg PO 6.25 mg BID ELISABET Administration Clopidogrel Bisulfate 75 mg 07/31/19 09:00 08/10/19 09:37 Plavix PO 75 mg DAILY ELISABET Administration Dexamethasone 6 mg 08/08/19 08:00 08/10/19 09:37 Decadron PO 6 mg QAM-WM ELISABET Administration Diphenhydramine HCl 50 mg 07/30/19 21:00 08/10/19 20:30 Benadryl PO 50 mg BID ELISABET Administration Enoxaparin Sodium 40 mg 08/05/19 09:00 08/10/19 09:36 Lovenox SC 40 mg 0900 ELISABET Administration Potassium Chloride 40 meq/ 100 mls @ 50 mls/hr 07/29/19 12:59 07/29/19 14:24 Device IVPB 100 mls ASDIR PRN Administration FOR SERUM K+ 2.5 - 3.5 Dextrose/Sodium Chloride 1,000 mls @ 50 mls/hr 07/29/19 15:30 08/10/19 08:00 D5 1/2 Ns IV 1,000 mls .Q20H ELISABET Administration Mometasone Furoate 100 mcg 07/30/19 18:30 08/10/19 18:14 Asmanex Hfa 100 Mcg INH 1 puff BID-RT ELISABET Administration Pantoprazole Sodium 40 mg 08/08/19 09:00 08/10/19 09:37 Protonix PO 40 mg DAILY ELISABET Administration Potassium Chloride 40 meq 08/03/19 09:00 08/10/19 09:36 K-Dur PO 40 meq DAILY ELISABET Administration Senna/Docusate Sodium 2 tab 08/03/19 21:04 08/03/19 21:55 Senokot S PO 2 tab BID PRN Administration Constipation Sodium Chloride 10 ml 08/07/19 21:00 08/10/19 20:34 Flush - Normal Saline IVF 10 ml Q12HR ELISABET Administration Terazosin HCl 5 mg 07/30/19 21:00 08/10/19 20:29 Hytrin PO 5 mg QPM ELISABET Administration - Exam General Appearance: awake alert ENT: normocephalic atraumatic Neck: supple Heart: RRR Respiratory: normal chest expansion, no tachypnea Gastrointestinal: soft, non-tender, non-distended, normal bowel sounds Hosp A/P - Plan Hosp A/P (1) Pneumonia due to COVID-19 virus Code(s): U07.1 - COVID-19; J12.89 - OTHER VIRAL PNEUMONIA Status: Acute Plan: (2) Acute and chronic respiratory failure with hypoxia Code(s): J96.21 - ACUTE AND CHRONIC RESPIRATORY FAILURE WITH HYPOXIA Status: Acute Plan: (3) COPD (chronic obstructive pulmonary disease) Status: Chronic (4) Hypokalemia Code(s): E87.6 - HYPOKALEMIA Status: Acute (5) Type 2 myocardial infarction Code(s): I21.A1 - MYOCARDIAL INFARCTION TYPE 2 Status: Acute - Plan COVID-19 pneumonia with COPD exacerbation causing acute on chronic hypoxic respiratory failure. Patient received convalescent plasma. Remains hypoxic. We were able to wean him from high flow nasal cannula to 4 L nasal cannula successfully. He is saturating well. Decadron day 05/30. Hypoxia is exacerbated by his underlying COPD. Start weaning off high flow nasal cannula to achieve a target oxygen saturation 88 to 92%. DC IV antibiotics.
[2019-08-11] MEDS: Dextrose 5 %-0.45 % NaCl 1,000 ML IV SCH ×2 (03:16→21:14)
[2019-08-11] MEDS: Mometasone 100 MCG/PUFF (1 INHALER) INH SCH ×2 (07:35→21:09)
[2019-08-11] MEDS: Aspirin 81 mg Enteric Coated Tablet PO SCH (08:24)
[2019-08-11] MEDS: Potassium Chloride 20 MEQ TAB PO SCH (08:24)
[2019-08-11] MEDS: Carvedilol 6.25 MG TAB PO SCH ×2 (08:24→21:09)
[2019-08-11] MEDS: Amlodipine 5 MG TAB PO SCH (08:24)
[2019-08-11] MEDS: diphenhydrAMINE 50 MG CAP PO SCH ×2 (08:24→21:10)
[2019-08-11] MEDS: Clopidogrel Bisulfate 75 MG TAB PO SCH (08:24)
[2019-08-11] MEDS: Enoxaparin Sodium 40 MG/0.4 ML SYRINGE SC SCH (08:24)
[2019-08-11] MEDS: Dexamethasone 4 MG TAB PO SCH (08:25)
[2019-08-11] MEDS: Senokot S 8.6-50 MG TAB PO PRN (08:27)
[2019-08-11] MEDS: Calcium Carbonate 500 MG ChewTAB PO PRN (08:27)
--- NOTE | 2019-08-11 20:28 | PDOC.HOSPP ---
- Subjective Encounter Date: 08/11/19 Subjective: He is still maintaining his oxygenation on 4L Nasal cannula. SOB with activity still present. - Objective Vital Signs & Weight: Vital Signs (12 hours) Temp Pulse Resp BP Pulse Ox 08/11/19 17:31 98.1 F 91 16 138/85 92 L 08/11/19 08:36 94 L Weight Admit Weight 178 lb 9.191 oz Weight 178 lb 9.191 oz Most Recent Monitor Data Heart Rate from ECG 79 NIBP 116/71 NIBP BP-Mean 86 Respiration from ECG 22 SpO2 98 I&O: 08/10/19 08/11/19 08/12/19 06:59 06:59 06:59 Intake Total 1830 2680 Output Total 2600 3450 Balance -770 -770 Result Diagrams: 08/08/19 03:24 08/08/19 03:24 Hospitalist ROS - Medication Medications: Active Medications Generic Name Dose Route Start Last Admin Trade Name Freq PRN Reason Stop Dose Admin Albuterol Sulfate 2 puff 08/01/19 09:59 08/01/19 20:02 Proventil Hfa INH 2 puff Q4H PRN Administration Dyspnea/Wheezing/SOB Amlodipine Besylate 5 mg 07/31/19 09:00 08/11/19 08:24 Norvasc PO 5 mg DAILY ELISABET Administration Aspirin 81 mg 07/31/19 09:00 08/11/19 08:24 Ecotrin PO 81 mg DAILY ELISABET Administration Atorvastatin Calcium 40 mg 07/30/19 21:00 08/10/19 20:29 Lipitor PO 40 mg HS ELISABET Administration Calcium Carbonate 1,000 mg 08/03/19 21:04 08/11/19 08:27 Tums PO 1,000 mg Q4H PRN Administration Heartburn or Indigestion Carvedilol 6.25 mg 07/30/19 21:00 08/11/19 08:24 Coreg PO 6.25 mg BID ELISABET Administration Clopidogrel Bisulfate 75 mg 07/31/19 09:00 08/11/19 08:24 Plavix PO 75 mg DAILY ELISABET Administration Dexamethasone 6 mg 08/08/19 08:00 08/11/19 08:25 Decadron PO 6 mg QAM-WM ELISABET Administration Diphenhydramine HCl 50 mg 07/30/19 21:00 08/11/19 08:24 Benadryl PO 50 mg BID ELISABET Administration Enoxaparin Sodium 40 mg 08/05/19 09:00 08/11/19 08:24 Lovenox SC 40 mg 0900 ELISABET Administration Potassium Chloride 40 meq/ 100 mls @ 50 mls/hr 07/29/19 12:59 07/29/19 14:24 Device IVPB 100 mls ASDIR PRN Administration FOR SERUM K+ 2.5 - 3.5 Dextrose/Sodium Chloride 1,000 mls @ 50 mls/hr 07/29/19 15:30 08/11/19 03:16 D5 1/2 Ns IV 1,000 mls .Q20H ELISABET Administration Mometasone Furoate 100 mcg 07/30/19 18:30 08/11/19 07:35 Asmanex Hfa 100 Mcg INH Not Given BID-RT ELISABET Pantoprazole Sodium 40 mg 08/08/19 09:00 08/11/19 08:24 Protonix PO 40 mg DAILY ELISABET Administration Potassium Chloride 40 meq 08/03/19 09:00 08/11/19 08:24 K-Dur PO 40 meq DAILY ELISABET Administration Senna/Docusate Sodium 2 tab 08/03/19 21:04 08/11/19 08:27 Senokot S PO 2 tab BID PRN Administration Constipation Sodium Chloride 10 ml 08/07/19 21:00 08/11/19 08:25 Flush - Normal Saline IVF 10 ml Q12HR ELISABET Administration Terazosin HCl 5 mg 07/30/19 21:00 08/10/19 20:29 Hytrin PO 5 mg QPM ELISABET Administration - Exam General Appearance: awake alert ENT: normocephalic atraumatic Neck: supple Heart: RRR Respiratory: normal chest expansion, no tachypnea, normal percussion Gastrointestinal: soft, non-tender, non-distended, normal bowel sounds Neurological: cranial nerve grossly intact, no focal deficits Hosp A/P - Plan Hosp A/P (1) Pneumonia due to COVID-19 virus Code(s): U07.1 - COVID-19; J12.89 - OTHER VIRAL PNEUMONIA Status: Acute Plan: (2) Acute and chronic respiratory failure with hypoxia Code(s): J96.21 - ACUTE AND CHRONIC RESPIRATORY FAILURE WITH HYPOXIA Status: Acute Plan: (3) COPD (chronic obstructive pulmonary disease) Status: Chronic (4) Hypokalemia Code(s): E87.6 - HYPOKALEMIA Status: Acute (5) Type 2 myocardial infarction Code(s): I21.A1 - MYOCARDIAL INFARCTION TYPE 2 Status: Acute - Plan COVID-19 pneumonia with COPD exacerbation causing acute on chronic hypoxic respiratory failure. Patient received convalescent plasma. Remains hypoxic. We were able to wean him from high flow nasal cannula to 4 L nasal cannula successfully. Decadron day 06/29. Hypoxia is exacerbated by his underlying COPD. If he remains stable, we can transfer him to the [facility] when a bed is available.
[2019-08-11] MEDS: Atorvastatin Calcium 40 MG TAB PO SCH (21:09)
[2019-08-11] MEDS: Terazosin HCl 5 MG CAP PO SCH (21:10)
[2019-08-12] MEDS: Mometasone 100 MCG/PUFF (1 INHALER) INH SCH (05:58)
[2019-08-12 06:23] LABS: Anion Gap 16 mmol/L (10-20); BUN (Urea Nitrogen) 21 mg/dL (8.4-25.7); Calc. Creatinine Clearance 111 mL/min (70-130); Calcium 7.9 mg/dL (7.8-10.44); Carbon Dioxide 20 mmol/L (22-29); Chloride 104 mmol/L (98-107); Estimated GFR-MDRD Greater than 90; Glucose 226 mg/dL (70-105); Potassium 4.4 mmol/L (3.5-5.1); Sodium 136 mmol/L (136-145)
--- NOTE | 2019-08-12 08:53 | PDOC.HOSPP ---
- Subjective Encounter Date: 08/12/19 Encounter Time: 13:00 Subjective: Patient moving a bit better. Got up to bedside commode himself. Still very SOB with movement but ok at rest. Spoke with the doctor at [facility] and he accepted patient for transfer. - Objective Vital Signs & Weight: Vital Signs (12 hours) Temp Pulse Resp BP Pulse Ox 08/12/19 06:00 98.3 F 77 20 136/80 91 L 08/11/19 21:00 98.7 F 84 20 129/78 90 L Weight Admit Weight 178 lb 9.191 oz Weight 178 lb 9.191 oz Most Recent Monitor Data Heart Rate from ECG 79 NIBP 116/71 NIBP BP-Mean 86 Respiration from ECG 22 SpO2 98 I&O: 08/11/19 08/12/19 08/13/19 06:59 06:59 06:59 Intake Total 2680 1320 Output Total 3450 2300 Balance -770 -980 Result Diagrams: 08/12/19 05:20 08/12/19 05:20 Hospitalist ROS - Review of Systems Constitutional: denies: fever, chills Respiratory: reports: cough, shortness of breath Cardiovascular: denies: chest pain, palpitations Gastrointestinal: denies: nausea, vomiting, abdominal pain - Medication Medications: Active Medications Generic Name Dose Route Start Last Admin Trade Name Freq PRN Reason Stop Dose Admin Albuterol Sulfate 2 puff 08/01/19 09:59 08/01/19 20:02 Proventil Hfa INH 2 puff Q4H PRN Administration Dyspnea/Wheezing/SOB Amlodipine Besylate 5 mg 07/31/19 09:00 08/11/19 08:24 Norvasc PO 5 mg DAILY ELISABET Administration Aspirin 81 mg 07/31/19 09:00 08/11/19 08:24 Ecotrin PO 81 mg DAILY ELISABET Administration Atorvastatin Calcium 40 mg 07/30/19 21:00 08/11/19 21:09 Lipitor PO 40 mg HS ELISABET Administration Calcium Carbonate 1,000 mg 08/03/19 21:04 08/11/19 08:27 Tums PO 1,000 mg Q4H PRN Administration Heartburn or Indigestion Carvedilol 6.25 mg 07/30/19 21:00 08/11/19 21:09 Coreg PO 6.25 mg BID ELISABET Administration Clopidogrel Bisulfate 75 mg 07/31/19 09:00 08/11/19 08:24 Plavix PO 75 mg DAILY ELISABET Administration Dexamethasone 6 mg 08/08/19 08:00 08/11/19 08:25 Decadron PO 6 mg QAM-WM ELISABET Administration Diphenhydramine HCl 50 mg 07/30/19 21:00 08/11/19 21:10 Benadryl PO 50 mg BID ELISABET Administration Enoxaparin Sodium 40 mg 08/05/19 09:00 08/11/19 08:24 Lovenox SC 40 mg 0900 ELISABET Administration Potassium Chloride 40 meq/ 100 mls @ 50 mls/hr 07/29/19 12:59 07/29/19 14:24 Device IVPB 100 mls ASDIR PRN Administration FOR SERUM K+ 2.5 - 3.5 Dextrose/Sodium Chloride 1,000 mls @ 50 mls/hr 07/29/19 15:30 08/11/19 21:14 D5 1/2 Ns IV 1,000 mls .Q20H ELISABET Administration Mometasone Furoate 100 mcg 07/30/19 18:30 08/12/19 05:58 Asmanex Hfa 100 Mcg INH 1 puff BID-RT ELISABET Administration Pantoprazole Sodium 40 mg 08/08/19 09:00 08/11/19 08:24 Protonix PO 40 mg DAILY ELISABET Administration Potassium Chloride 40 meq 08/03/19 09:00 08/11/19 08:24 K-Dur PO 40 meq DAILY ELISABET Administration Senna/Docusate Sodium 2 tab 08/03/19 21:04 08/11/19 08:27 Senokot S PO 2 tab BID PRN Administration Constipation Sodium Chloride 10 ml 08/07/19 21:00 08/11/19 21:15 Flush - Normal Saline IVF 10 ml Q12HR ELISABET Administration Terazosin HCl 5 mg 07/30/19 21:00 08/11/19 21:10 Hytrin PO 5 mg QPM ELISABET Administration - Exam General Appearance: NAD, awake alert ENT: moist mucosa Heart: RRR, no murmur, no gallops, no rubs Respiratory - other findings: coarse breath sounds bilaterally, no increase WOB , good air movement Gastrointestinal: soft, non-tender, non-distended, normal bowel sounds Psychiatric: normal affect, normal behavior, A&O x 3 Hosp A/P (1) Pneumonia due to COVID-19 virus Code(s): U07.1 - COVID-19; J12.89 - OTHER VIRAL PNEUMONIA Status: Acute (2) Acute and chronic respiratory failure with hypoxia Code(s): J96.21 - ACUTE AND CHRONIC RESPIRATORY FAILURE WITH HYPOXIA Status: Acute (3) COPD (chronic obstructive pulmonary disease) Status: Chronic (4) Hypokalemia Code(s): E87.6 - HYPOKALEMIA Status: Resolved (5) Type 2 myocardial infarction Code(s): I21.A1 - MYOCARDIAL INFARCTION TYPE 2 Status: Acute - Plan COVID-19 pneumonia with COPD exacerbation causing acute on chronic hypoxic respiratory failure. Patient received convalescent plasma. Remains hypoxic. We were able to wean him from high flow nasal cannula to 4 L nasal cannula successfully. Decadron day 07/30. Hypoxia is exacerbated by his underlying COPD. Will transfer to [facility] once bed available.
[2019-08-12] MEDS: Potassium Chloride 20 MEQ TAB PO SCH (09:07)
[2019-08-12] MEDS: diphenhydrAMINE 50 MG CAP PO SCH (09:08)
[2019-08-12] MEDS: Dexamethasone 4 MG TAB PO SCH (09:08)
[2019-08-12] MEDS: Clopidogrel Bisulfate 75 MG TAB PO SCH (09:08)
[2019-08-12] MEDS: Carvedilol 6.25 MG TAB PO SCH (09:08)
[2019-08-12] MEDS: Amlodipine 5 MG TAB PO SCH (09:09)
[2019-08-12] MEDS: Aspirin 81 mg Enteric Coated Tablet PO SCH (09:09)
[2019-08-12] MEDS: Enoxaparin Sodium 40 MG/0.4 ML SYRINGE SC SCH (09:10)
[2019-08-12 12:39] LABS: Hemoglobin 15.7 g/dL (14.0-18.0); Mean Corpuscular HGB CONC 32.3 g/dL (32.0-36.0); Mean Corpuscular Hemoglobin 31.5 pg (27.0-31.0); Mean Corpuscular Volume 97.4 fL (78.0-98.0); Mean Platelet Volume 8.2 fL (7.4-10.4); Platelet Count 163 thou/uL (130-400); RBC Distribution Width 12.8 % (11.5-14.5); Red Blood Cell (RBC) Count 4.99 mill/uL (4.70-6.10); White Blood Cell (WBC) Count 15.5 thou/uL (4.8-10.8)
[2019-08-12 13:01] LABS: Band 4 % (5-11); Lymphocytes 6 % (21-51); MDiff Complete? YES; Monocytes 6 % (0-10); Neutrophil 83 % (42-75); Platelet Morphology Comment Appears Adequate; Polychromasia SLIGHT = 2-3 cells (100X) (0-2/hpf); Reactive Lymphocytes 1 % (0-10)
[2019-08-12 13:47] VITALS: BP 112/70; TEMP 98.4
--- NOTE | 2019-08-13 05:23 | DIS ---
DATE OF ADMISSION: 07/29/2019 DATE OF DISCHARGE: 08/12/2019 PRIMARY CARE PHYSICIAN: [facility]. REASON FOR ADMISSION: Suspected COVID-19 pneumonia. DIAGNOSES AT DISCHARGE: 1. Coronavirus disease 2019 pneumonia. 2. [id number] respiratory failure with hypoxia. 3. Chronic obstructive pulmonary disease with exacerbation. 4. Hypokalemia. 5. Type 2 myocardial infarction. 6. Rheumatoid arthritis. 7. Coronary artery disease. 8. Osteoarthritis. 9. Schizoaffective disorder. PROCEDURE: CT of the chest without IV contrast showing chronic interstitial lung disease with a 16 cm bulla in the majority of the right upper lobe and no focal pulmonary consolidation. CONSULTATIONS: 1. Cardiology, Dr. Batres. 2. Pulmonology, Dr. Wu. SUMMARY OF HOSPITAL COURSE: This is an inmate of [facility], a 59-year-old who presented with shortness of breath in the [facility]dc. He was found to be tachypneic, diaphoretic, in respiratory distress, also fever. The patient had very low oxygen saturations and high-flow nasal cannula. The patient kept removing it and he was then placed on BiPAP with oxygen saturation climbing up into the 90s. His respiratory status improved. He did have an elevated troponin and he was given some Lovenox, admitted to the [facility]. Dr. Batres was consulted. He determined that the patient did have a type 2 myocardial infarction secondary to his COVID pneumonia. His COVID testing came back positive. Dr. Wu was consulted to help with pulmonary management. The patient was managed noninvasively with high-flow oxygen. He never had to be intubated. This was slowly weaned down, so he was doing well on a 4 L nasal cannula, just some shortness of breath with ambulation movement. He was starting to improve his strength by the time of discharge as well. He was starting to able to get up to the bedside commode by himself. The patient was eventually put on Decadron due to the severity of his illness. He was stable and was eventually accepted for transfer back to [facility]. He was transferred to their hospital. DISCHARGE MANAGEMENT: Transfer to [facility] inpatient. ACTIVITY: As tolerated. DIET: Healthy heart with MightyShakes twice a day. THERAPY: Occupational and Physical Therapy. Oxygen as needed to keep his sats up at 90%. MEDICATIONS: The patient is to continue his current medications, especially Decadron 6 mg daily for another 4 days. Job ID: [id number] MTDD
== END 2019-08-12 17:15 | disposition short-term general hospital (02) | DRG 177 ==
LOC: ERS 01:12 → EEVIPCON 01:12 → CCU 04:01 → IMCU/EMU 07-31 00:11 → T4-B 08-11 17:33
PROVIDERS: ADMIT Internal Medicine; ATTEND Internal Medicine
PROC: 5A09357 Assistance with Respiratory Ventilation, Less than 24 Consecutive Hours, Continuous Positive Airway Pressure (ICD-10-PCS; principal; 2019-07-29)
PROC: 8E0ZXY6 Isolation (ICD-10-PCS; 2019-07-29)
PROC: 30233L1 Transfusion of Nonautologous Fresh Plasma into Peripheral Vein, Percutaneous Approach (ICD-10-PCS; 2019-07-30)
PROC: 30233K1 Transfusion of Nonautologous Frozen Plasma into Peripheral Vein, Percutaneous Approach (ICD-10-PCS; 2019-07-30)
DX: U07.1 COVID-19 (principal); J12.89 Other viral pneumonia; J96.21 Acute and chronic respiratory failure with hypoxia; I21.A1 Myocardial infarction type 2; J43.9 Emphysema, unspecified; E87.6 Hypokalemia; M06.9 Rheumatoid arthritis, unspecified; I25.10 Atherosclerotic heart disease of native coronary artery without angina pectoris; M19.90 Unspecified osteoarthritis, unspecified site; F25.9 Schizoaffective disorder, unspecified; I25.2 Old myocardial infarction; Z95.5 Presence of coronary angioplasty implant and graft; Z88.5 Allergy status to narcotic agent; Z88.0 Allergy status to penicillin; Z79.899 Other long term (current) drug therapy; Z79.82 Long term (current) use of aspirin; Z79.51 Long term (current) use of inhaled steroids
CPT/HCPCS: 36415; 36430; 71045; 71250; 80048; 80053; 80061; 82553; 82805; 83605; 83880; 84145; 84484; 85007; 85025; 85027; 85379; 85610; 85730; 86141; 86850; 86900; 86901; 87040; 87635; 93005; 94660; 94760; 96360; 96361; 96372; J0456; J0696; J1650; J2930; J3480; J3490; J7050; J8540; Q0163; S0028; U0003